=== PATIENT | male | born 1930 | race Caucasian/White ===

== ENCOUNTER 2017-01-26 10:57 | Emergency (ER) | payer BC ==
[~2017-01-26] VITALS: Ht 182.9 cm; Wt 107.2 kg
[~2017-01-26 10:57] MED LIST: AMOX500C3 PO; ASPI81TA21 PO; BUME1TAB PO; CARV25TA2 PO; FAMO20TA11 PO; GLIM2TAB2 PO; LISI5TAB PO; LPT/40 PO; METF500T PO; MULTTAB58 PO; SITA100T3 PO; WARF5TAB7 PO; WARF5TAB90 PO
[2017-01-26 11:08] VITALS: TEMP 37.7; O2SAT 97; Ht 182.9 cm; Wt 107.2 kg
[2017-01-26] MEDS ORDERED: WARF5TAB90 PO (11:54)
[2017-01-26] MEDS ORDERED: LISI2.5T5 PO (11:54)
[2017-01-26] MEDS ORDERED: RANO1000 PO (11:54)
[2017-01-26 12:10] LABS: HEMATOCRIT 33.8 % (42-52); MEAN CELL VOLUME 90.6 fL (80-100); MEAN CORPUSCULAR HGB CONC 33.1 g/dl (32-36); MEAN PLATELET VOLUME 10.2 fL (7.4-10.4); PLATELET COUNT 127 K/uL (130-400); RED BLOOD COUNT 3.73 M/uL (4.7-6.1); WHITE BLOOD COUNT 8.19 K/uL (4.8-10.8)
[2017-01-26 12:24] LABS: INR 1.7 (0.9-1.1); PROTHROMBIN TIME (PATIENT) 19.1 SECONDS (9.0-12.0)
[2017-01-26 12:28] LABS: ALT/SGPT 26 U/L (12-78); BLOOD UREA NITROGEN 27 mg/dl (7-18); BUN/CREATININE RATIO 15.1 (10-20); CALCIUM 8.7 mg/dl (8.5-10.1); CARBON DIOXIDE 27 mmol/L (21-32); CHLORIDE 103 mmol/L (98-107); GLUCOSE 139 mg/dl (70-99); MAGNESIUM 2.3 mg/dl (1.8-2.4); POTASSIUM 4.6 mmol/L (3.5-5.1); SODIUM 136 mmol/L (136-145)
[2017-01-26 12:38] LABS: ALB/GLOB RATIO 0.8 (0.9-2); ALKALINE PHOSPHATASE 109 U/L (45-117); AST/SGOT 25 U/L (15-37)
--- NOTE | 2017-01-26 12:44 | DIAGNOSTIC IMAGING REPORT ---
CT OF THE HEAD WITHOUT CONTRAST CLINICAL HISTORY: Change in mental status. COMPARISON STUDY: No previous studies for comparison. CT DOSE: 2155.14 mGy.cm TECHNIQUE: Helical axial images of the head were obtained without IV contrast. Automated exposure control was utilized for the study. FINDINGS: There is a moderate amount of acute intraventricular hemorrhage, predominantly located within the right lateral ventricle. There is a small amount of hemorrhage within the occipital horn as well as the temporal horn of the left lateral ventricle. There is mild dilatation of the lateral ventricles. There is a small amount of hemorrhage within the third ventricle. The basilar cisterns are patent. There are no extra axial collections. There are no findings to suggest acute dural sinus thrombosis or acute territorial infarct. There are no significant calvarial abnormalities. There is mild mucosal thickening of the sinuses. IMPRESSION: Moderate acute intraventricular hemorrhage including a 3.9 cm midline lateral ventricular clot, as described above. The etiology for this hemorrhage is not clear on this exam and an underlying mass cannot be excluded. Mild ventricular dilatation which could be due to atrophy or related to the hemorrhage. A short-term follow-up head CT in 12 hours is recommended. Discussed with Dr. Chavez at time of dictation. Electronically signed by: Anshul Redding M.D. 01/26/2017 12:42 PM Dictated Date/Time: 01/26/2017 12:36 PM
--- NOTE | 2017-01-26 12:46 | DIAGNOSTIC IMAGING REPORT ---
CT OF THE CERVICAL SPINE WITHOUT CONTRAST CLINICAL HISTORY: Neck pain. COMPARISON STUDY: No previous studies for comparison. TECHNIQUE: Helical axial images of the cervical spine were obtained without IV contrast. Sagittal and coronal reconstructions were viewed. FINDINGS: Alignment of the cervical spine is anatomic. Craniocervical junction is intact. There is no acute cervical spine fracture. [id number]-[id number] multilevel degenerative disc disease and facet arthrosis is present. There is no prevertebral edema. IMPRESSION: No acute cervical spine fracture or subluxation. Electronically signed by: Anshul Redding M.D. 01/26/2017 12:45 PM Dictated Date/Time: 01/26/2017 12:43 PM
[2017-01-26 12:49] LABS: BASO % 0.1 %; BASO ABS # 0.01 K/uL (0-0.2); COMPLETE YES; EOS % 1.5 %; IG% 0.2 %; LYMPH ABS # 1.31 K/uL (1.2-3.4); MONO % 6.3 %; NEUT % 75.9 %
[2017-01-26] MEDS ORDERED: PROTHROMBIN COMP CONC- KCENTRA 2,000 UNIT in SYRINGE 0 ML IV STA (13:30)
[2017-01-26] MEDS ORDERED: PHYTONADIONE INJ 10 MG in SODIUM CHLORIDE 0.9% 50ML 50 ML IV ONE (13:45)
[2017-01-26] MEDS ORDERED: PROTHROMBIN COMP CONC- KCENTRA 2,000 UNIT in SYRINGE 0 ML IV SCH (14:00)
--- NOTE | 2017-01-26 14:46 | DIAGNOSTIC IMAGING REPORT ---
CHEST ONE VIEW PORTABLE CLINICAL HISTORY: Altered mental status. COMPARISON STUDY: Chest radiograph June 25, 2013. FINDINGS: There is no pneumothorax or pleural effusion. Moderate elevation of the right hemidiaphragm is increased since exam of June 25, 2013. There is an aortic valve prosthesis. There is a left subclavian biventricular pacer/AICD. Median sternotomy wires are noted. There is moderate cardiomegaly without evidence of pulmonary edema. No lobar consolidation is present. IMPRESSION: 1. No acute cardiopulmonary findings. 2. Increase in moderate elevation pf the right hemidiaphragm since exam of June 25, 2013. 3. Moderate cardiomegaly without evidence of pulmonary edema. Electronically signed by: Anshul Redding M.D. 01/26/2017 2:45 PM Dictated Date/Time: 01/26/2017 2:44 PM
[2017-01-26 15:15] VITALS: BP 142/78; PULSE 90; O2SAT 95
--- NOTE | 2017-02-05 14:44 | EMERGENCY ROOM VISIT NOTE ---
History Report prepared by Cesaribmiroslava: Ronny Martinez Under the Supervision of: Dr. Sadia Chavez D.O. First contact with patient: 11:15 Chief Complaint: CONFUSION Stated Complaint: CONFUSION/HEADACHE/SHOULDER PAIN Nursing Triage Summary: Patient presents via EMS. reports that patient was confused this AM, thinkinng that he was in [place]. On arrival to ED patient appears moderately oriented, slow to answer some questions. Patient also presents with low grade fever. Patient does c/c of mild one day headache, frontal area. Patient denies any cough, chest pain, urinary symtpoms, vomiting. History of Present Illness The patient is a 86 year old male who presents to the Emergency Room with complaints of constant confusion starting yesterday. The patient is accompanied by his who states that he has been confused and is not oriented to time. She reports that the patient believed he was in [place] this morning but states that he was in [place] months ago. She states that he has not had any change in medications and typically has edema in his legs. His also reports that he ran into a tree branch the other day causing a laceration to his right cheek. The patient states that he has been experiencing constipation, which resolved, and dysuria. He admits that he has neck stiffness that occurs occasionally. The patient states that he has a history of chest surgery and a pacemaker. The patient denies chest pains, dyspnea, arm pain, leg pain, cough, dizziness, and lightheadedness. Source of History: patient, spouse/significant other () Onset: yesterday Position: other (global) Quality: other (confusion) Timing: constant Associated Symptoms: + urinary symptoms, No cough, No chest pain, No SOB Review of Systems See HPI for pertinent positives & negatives. A total of 10 systems reviewed and were otherwise negative. Past Medical & Surgical Medical Problems: (1) Angina (2) Aortic valve stenosis (3) AORTOCORONARY BYPASS (4) Chronic ischemic heart disease (5) DIAB ALEIDA WO COMPL, TYPE II OR UNSPEC TYPE, NOT UNCNTRLD (6) Epistaxis (7) GI bleed (8) Hyperlipidemia (9) HYPERLIPIDEMIA NEC/NOS (10) Influenza (11) Ischemic cardiomyopathy (12) Percutaneous transluminal coronary angioplasty (13) Placement of stent in coronary artery (14) SHORTNESS OF BREATH Family History Omitted due to patient age Social History Smoking Status: Never Smoker Alcohol Use: other Marital Status: Housing Status: lives with family Current/Historical Medications Scheduled Aspirin Enteric Coated (Ecotrin Or Generic), 81 MG PO DAILY Atorvastatin (Lipitor), 40 MG PO DAILY Bumetanide (Bumex), 1 MG PO DAILY Carvedilol (Coreg), 25 MG PO BID Famotidine (Pepcid), 20 MG PO DAILY Glimepiride (Glimepiride), 2 MG PO DAILY Insulin Aspart (Novolog Flexpen), 1 DOSE SQ QID Lisinopril (Lisinopril), 5 MG PO DAILY Metformin Hcl (Glucophage), 500 MG PO QAM Multiple Vitamin (Multivitamin), 1 TABLET PO DAILY Polyethylene Glycol 3350 (Miralax), 17 GM PO DAILY Ranolazine (Ranexa), 1,000 MG PO BID Senna/Docusate Sod (Senokot S), 1 TAB PO Q24H Sitagliptin Phosphate (Januvia), 100 MG PO DAILY Sulfa/Trimethoprim (Bactrim Ds 800MG/160MG), 1 TAB PO BID Tamsulosin HCl (Tamsulosin HCl), 0.4 MG PO QPM Warfarin Sodium (Coumadin), 5 MG PO 2XWK Warfarin Sodium (Coumadin), 2.5 MG PO 5XWK Scheduled PRN Acetaminophen (Tylenol), 500 MG PO Q4 PRN for Pain Bisacodyl (Cvs Bisacodyl), 10 MG RE Q24H PRN for Constipation Docusate Sodium (Diocto), 10 ML PO BID PRN for Constipation Magnesium Hydroxide (Milk of Magnesia), 30 ML PO Q24H PRN for Constipation Sodium Phosphate/Biphosphate (Fleet Enema), 1 EA LA DAILY PRN for Constipation Allergies Coded Allergies: No Known Allergies (Unverified , 02/04/17) Physical Exam Vital Signs Date Time Temp Pulse Resp B/P (MAP) Pulse Ox O2 Delivery O2 Flow Rate FiO2 01/26/17 15:15 90 14 142/78 95 01/26/17 15:05 92 25 94 01/26/17 15:00 150/80 01/26/17 14:50 92 23 94 01/26/17 14:45 149/85 01/26/17 14:37 97 22 93 01/26/17 14:30 135/80 01/26/17 14:22 91 22 97 01/26/17 14:17 148/71 01/26/17 14:15 135/102 01/26/17 14:15 88 144/84 01/26/17 14:05 92 22 95 01/26/17 14:02 130/74 01/26/17 13:50 93 21 94 01/26/17 13:46 131/75 01/26/17 13:35 98 23 94 01/26/17 13:30 140/80 01/26/17 13:29 150/80 01/26/17 13:20 93 22 95 01/26/17 13:09 91 01/26/17 13:05 93 12 98 01/26/17 12:50 92 17 99 01/26/17 12:45 129/80 01/26/17 11:57 90 23 96 01/26/17 11:27 90 21 92 01/26/17 11:16 88 01/26/17 11:08 97 Room Air 01/26/17 11:08 37.7 90 20 149/65 96 Room Air 01/26/17 11:03 149/65 Physical Exam GENERAL: alert, well appearing, well nourished, no distress, non-toxic EYE EXAM: normal conjunctiva, PERRL and EOM's grossly intact OROPHARYNX: no exudate, no erythema, lips, buccal mucosa, and tongue normal and mucous membranes are moist HEAD: small superficial laceration to the right inferior orbital region. No other contusions or ecchymosis. NECK: supple, no nuchal rigidity, no adenopathy, non-tender LUNGS: Clear to auscultation. Normal chest wall mechanics HEART: no murmurs, S1 normal and S2 normal CHEST: Midline scar over sternum consistent with sternotomy. Pacemaker on anterior left chest wall. ABDOMEN: abdomen soft, non-tender, normo-active bowel sounds, no masses, no rebound or guarding. BACK: Back is symmetrical on inspection and there is no deformity, no midline tenderness, no CVA tenderness. SKIN: no rashes and no bruising UPPER EXTREMITIES: upper extremities are grossly normal. LOWER EXTREMITIES: 3+ edema bilaterally. NEURO EXAM: Normal sensorium, cranial nerves II-XII grossly intact, normal speech, no gross weakness of arms, no gross weakness of legs. No drift. Finger to nose intact. Gross sensation intact. Medical Decision & Procedures ER Provider Diagnostic Interpretation: Radiology results have been interpreted by the radiologist and reviewed by me. CT OF THE HEAD WITHOUT CONTRAST CLINICAL HISTORY: Change in mental status. COMPARISON STUDY: No previous studies for comparison. CT DOSE: 2155.14 mGy.cm TECHNIQUE: Helical axial images of the head were obtained without IV contrast. Automated exposure control was utilized for the study. FINDINGS: There is a moderate amount of acute intraventricular hemorrhage, predominantly located within the right lateral ventricle. There is a small amount of hemorrhage within the occipital horn as well as the temporal horn of the left lateral ventricle. There is mild dilatation of the lateral ventricles. There is a small amount of hemorrhage within the third ventricle. The basilar cisterns are patent. There are no extra axial collections. There are no findings to suggest acute dural sinus thrombosis or acute territorial infarct. There are no significant calvarial abnormalities. There is mild mucosal thickening of the sinuses. IMPRESSION: Moderate acute intraventricular hemorrhage including a 3.9 cm midline lateral ventricular clot, as described above. The etiology for this hemorrhage is not clear on this exam and an underlying mass cannot be excluded. Mild ventricular dilatation which could be due to atrophy or related to the hemorrhage. A short-term follow-up head CT in 12 hours is recommended. Discussed with Dr. Chavez at time of dictation. Electronically signed by: Anshul Redding M.D. 01/26/2017 12:42 PM Dictated Date/Time: 01/26/2017 12:[address] OF THE CERVICAL SPINE WITHOUT CONTRAST CLINICAL HISTORY: Neck pain. COMPARISON STUDY: No previous studies for comparison. TECHNIQUE: Helical axial images of the cervical spine were obtained without IV contrast. Sagittal and coronal reconstructions were viewed. FINDINGS: Alignment of the cervical spine is anatomic. Craniocervical junction is intact. There is no acute cervical spine fracture. [id number]-we-mjublmjm multilevel degenerative disc disease and facet arthrosis is present. There is no prevertebral edema. IMPRESSION: No acute cervical spine fracture or subluxation. Electronically signed by: Anshul Redding M.D. 01/26/2017 12:45 PM Dictated Date/Time: 01/26/2017 12:43 PM Laboratory Results 01/26/17 11:50 Red Blood Count 3.73, Mean Corpuscular Volume 90.6, Mean Corpuscular Hemoglobin 30.0, Mean Corpuscular Hemoglobin Concent 33.1, Mean Platelet Volume 10.2, Neutrophils (%) (Auto) 75.9, Lymphocytes (%) (Auto) 16.0, Monocytes (%) (Auto) 6.3, Eosinophils (%) (Auto) 1.5, Basophils (%) (Auto) 0.1, Neutrophils # (Auto) 6.21, Lymphocytes # (Auto) 1.31, Monocytes # (Auto) 0.52, Eosinophils # (Auto) 0.12, Basophils # (Auto) 0.01 01/26/17 11:50 Test 01/26/17 11:50 White Blood Count 8.19 K/uL (4.8-10.8) Red Blood Count 3.73 M/uL (4.7-6.1) Hemoglobin 11.2 g/dL (14.0-18.0) Hematocrit 33.8 % (42-52) Mean Corpuscular Volume 90.6 fL (80-100) Mean Corpuscular Hemoglobin 30.0 pg (25-34) Mean Corpuscular Hemoglobin Concent 33.1 g/dl (32-36) Platelet Count 127 K/uL (130-400) Mean Platelet Volume 10.2 fL (7.4-10.4) Neutrophils (%) (Auto) 75.9 % Lymphocytes (%) (Auto) 16.0 % Monocytes (%) (Auto) 6.3 % Eosinophils (%) (Auto) 1.5 % Basophils (%) (Auto) 0.1 % Neutrophils # (Auto) 6.21 K/uL (1.4-6.5) Lymphocytes # (Auto) 1.31 K/uL (1.2-3.4) Monocytes # (Auto) 0.52 K/uL (0.11-0.59) Eosinophils # (Auto) 0.12 K/uL (0-0.5) Basophils # (Auto) 0.01 K/uL (0-0.2) RDW Standard Deviation 50.3 fL (36.4-46.3) RDW Coefficient of Variation 15.1 % (11.5-14.5) Immature Granulocyte % (Auto) 0.2 % Immature Granulocyte # (Auto) 0.02 K/uL (0.00-0.02) Prothrombin Time 19.1 SECONDS (9.0-12.0) Prothromb Time International Ratio 1.7 (0.9-1.1) Anion Gap 6.0 mmol/L (3-11) Est Creatinine Clear Calc Drug Dose 35.9 ml/min Estimated GFR () 38.1 Estimated GFR (Non- 32.9 BUN/Creatinine Ratio 15.1 (10-20) Calcium Level 8.7 mg/dl (8.5-10.1) Magnesium Level 2.3 mg/dl (1.8-2.4) Total Bilirubin 1.4 mg/dl (0.2-1) Aspartate Amino Transf (AST/SGOT) 25 U/L (15-37) Alanine Aminotransferase (ALT/SGPT) 26 U/L (12-78) Alkaline Phosphatase 109 U/L (45-117) Troponin I < 0.015 ng/ml (0-0.045) Total Protein 7.7 gm/dl (6.4-8.2) Albumin 3.5 gm/dl (3.4-5.0) Globulin 4.2 gm/dl (2.5-4.0) Albumin/Globulin Ratio 0.8 (0.9-2) Thyroid Stimulating Hormone (TSH) 1.310 uIu/ml (0.300-4.500) Laboratory results per my review. Medications Administered Medications (Trade) Dose Ordered Sig/Sary Route Start Time Stop Time Status Last Admin Dose Admin Phytonadione 10 mg/Sodium Chloride 51 ml @ 102 mls/hr ONE ONCE IV 01/26/17 13:45 01/26/17 14:14 DC 01/26/17 13:51 102 MLS/HR Prothrombin Complex Concent (Human) 2000 unit/ Syringe 80 ml @ 10 mls/min 1400 IV 01/26/17 14:00 01/26/17 16:21 DC 01/26/17 14:11 10 MLS/MIN ECG Indication: altered mental status Rate (beats per minute): 88 Rhythm: other (paced) Findings: no acute ischemic change, other (prolonged QRS along with pacemaker) ED Course 1122: The patient was evaluated in room C10. A complete history and physical exam was performed. 1300: I reevaluated the patient and he is resting comfortably. I updated him on the results. 1309: I discussed the patient's case with Dr. Dimas Lopez, Neurology [facility]. He recommends that I give the patient PCC here if unavailable to give 5 mg of Vitamin K. He understands the patient's condition and agrees to accept the patient. The patient will be further evaluated. 1330: I discussed the patient's case with Dr. Pratt, [facility] Pathology. We spoke about the patient's dosage of PCC and the institutional protocol. 1345: Phytonadione 10 mg/ Sodium Chloride 51 ml @ 102 mls/hr Protocol IV. 1400: Prothrombin Complex Concent 2000 unit/Syringe 80 ml @ 10 mls/min IV. Medical Decision The differential diagnosis includes but is not limited to: etiologies such as metabolic, infection, hypoglycemia, electrolyte abnormalities, cardiac sources, intracerebral event, toxicologic, neurologic, as well as others were entertained. Medication Reconciliation: I attest that I have personally reviewed the patient' s current medication list. Blood pressure screening: Patient was found to have an elevated blood pressure and was referred to their primary doctor for recheck and further treatment. Discussed the patient and family at bedside possible possible differential diagnoses during my initial evaluation. Patient found to have acute intraventricular hemorrhage requiring transfer and additional medications. Patient and family aware of all findings and results were agreeable with transfer. Vital signs otherwise stable. Consults Time Called: 1300 Consulting Physician: Dr. Dimas Lopez, Neurology [facility] Returned Call: 1300 I discussed the patient's case with Dr. Dimas Lopez, Neurology [facility]. He recommends that I give the patient PCC here if unavailable to give 5 mg of Vitamin K. He understands the patient's condition and agrees to accept the patient. The patient will be further evaluated. Additional Consults: Time Called: 1330 Consulted Physician: Dr. Pratt, [facility] Pathology Returned Call: 1330 Additional Comments: I discussed the patient's case with Dr. Pratt, [facility] Pathology. We spoke about the patient's dosage of PCC and the institutional protocol. Impression Primary Impression: Confusion Additional Impressions: Intraventricular hemorrhage Chronic kidney disease (CKD) Subtherapeutic anticoagulation H/O aortic valve replacement Critical Care I have personally spent 60 minutes of critical care time in the direct management of this patient. This includes bedside care, interpretation of diagnostic studies, and testing, discussion with consultants, patient, and family members, and other required patient management activities. This 60 minutes is in excess of all separately billable procedures. Scribe Attestation The scribe's documentation has been prepared under my direction and personally reviewed by me in its entirety. I confirm that the note above accurately reflects all work, treatment, procedures, and medical decision making performed by me. Departure Information Dispostion Transfer Acute Care Facility (Dr. Dimas Lopez, Neurology [facility]) Referrals Josiah Gustafson III, M.D. (PCP) Patient Instructions My [facility] Problem Qualifiers Additional Impressions: Chronic kidney disease (CKD) Chronic kidney disease stage: unspecified stage Qualified Codes: N18.9 - Chronic kidney disease, unspecified
[2017-02-08] MEDS ORDERED: ANSS PR (12:22)
== END 2017-01-26 15:30 | disposition short-term general hospital (02) ==
LOC: EDBD 10:57 → C.EDC 10:59
DX: I61.5 Nontraumatic intracerebral hemorrhage, intraventricular (principal); Z95.2 Presence of prosthetic heart valve; R79.1 Abnormal coagulation profile; N18.9 Chronic kidney disease, unspecified; E11.9 Type 2 diabetes mellitus without complications; E78.5 Hyperlipidemia, unspecified; I35.0 Nonrheumatic aortic (valve) stenosis; I25.5 Ischemic cardiomyopathy; Z95.1 Presence of aortocoronary bypass graft; Z95.5 Presence of coronary angioplasty implant and graft; Z79.01 Long term (current) use of anticoagulants; Z79.82 Long term (current) use of aspirin; Z79.899 Other long term (current) drug therapy; Z79.4 Long term (current) use of insulin

== ENCOUNTER 2017-02-04 17:08 | Observation (INO) | payer OTHER, BC ==
[~2017-02-04] VITALS: Ht 185.4 cm; Wt 102.6 kg
[~2017-02-04 17:08] MED LIST changes: -AMOX500C3 PO; +LISI2.5T5 PO; -LISI5TAB PO; +RANO1000 PO; -WARF5TAB7 PO
[2017-02-04] MEDS ORDERED: FLM4 PO (17:55)
[2017-02-04] MEDS ORDERED: NVLGI/PEN SQ (17:59)
[2017-02-04] MEDS ORDERED: SULF800T23 PO (18:00)
[2017-02-04] MEDS ORDERED: SODIUM CHLORIDE 0.9% 1000ML 1,000 ML IV STA (18:10)
[2017-02-04 18:27] LABS: HEMATOCRIT 30.2 % (42-52); MEAN CELL VOLUME 88.6 fL (80-100); MEAN CORPUSCULAR HEMOGLOBIN 29.6 pg (25-34); MEAN CORPUSCULAR HGB CONC 33.4 g/dl (32-36); MEAN PLATELET VOLUME 10.7 fL (7.4-10.4); PLATELET COUNT 127 K/uL (130-400); RED BLOOD COUNT 3.41 M/uL (4.7-6.1); WHITE BLOOD COUNT 6.38 K/uL (4.8-10.8)
[2017-02-04] MEDS ORDERED: POLY335019 PO (18:31)
[2017-02-04] MEDS ORDERED: MOMLX PO (18:31)
[2017-02-04] MEDS ORDERED: SENN-65 PO (18:31)
[2017-02-04] MEDS ORDERED: ACET-1256 PO (18:31)
[2017-02-04] MEDS ORDERED: BISA10SU54 RE (18:31)
[2017-02-04] MEDS ORDERED: CLCUDL PO (18:31)
[2017-02-04] MEDS ORDERED: SODIENE PR (18:31)
[2017-02-04 18:35] LABS: BUN/CREATININE RATIO 20.2 (10-20); CALCIUM 8.1 mg/dl (8.5-10.1); CREATININE 1.2 mg/dl (0.60-1.40); POTASSIUM 3.5 mmol/L (3.5-5.1)
[2017-02-04 18:38] LABS: INR 1.1 (0.9-1.1); PARTIAL THROMBOPLASTIN RATIO 1.1
[2017-02-04 18:48] LABS: BASO % 0.3 %; BASO ABS # 0.02 K/uL (0-0.2); COMPLETE YES; EOS % 3.9 %; IG% 0.2 %; LYMPH % 20.5 %; LYMPH ABS # 1.31 K/uL (1.2-3.4); MONO % 8.9 %; NEUT % 66.2 %
[2017-02-04 19:22] LABS: URINE APPEARANCE CLEAR (CLEAR); URINE BILIRUBIN NEG (NEG); URINE COLOR DK YELLOW; URINE NITRITE NEG (NEG); URINE PH 5.5 (4.5-7.5); URINE SPECIFIC GRAVITY 1.021 (1.000-1.030); UROBILINOGEN NEG (NEG)
[2017-02-04 19:23] LABS: MANUAL MICROSCOPIC REQUIRED? NO; REVIEW REQ? NO
--- NOTE | 2017-02-04 19:41 | DIAGNOSTIC IMAGING REPORT ---
CHEST ONE VIEW PORTABLE CLINICAL HISTORY: Abdominal pain. GI bleed. COMPARISON STUDY: 01/26/2017 FINDINGS: The heart is enlarged. There is a left subclavian pacer/defibrillator present. There is no failure. There is no focal pulmonary consolidation. There are no pleural effusions. There is stable mild elevation right hemidiaphragm. There is no free intraperitoneal air. There is aortic valve prosthesis.[ IMPRESSION: No active disease in the chest. Electronically signed by: Christopher Back M.D. 02/04/2017 7:39 PM Dictated Date/Time: 02/04/2017 7:39 PM
--- NOTE | 2017-02-04 19:42 | DIAGNOSTIC IMAGING REPORT ---
KUB CLINICAL HISTORY: Abdominal pain. GI bleed. COMPARISON STUDY: No previous studies for comparison. FINDINGS: There is no pathologic bowel dilatation. There are multiple pelvic basin calcifications. These likely represent phleboliths. There is no conventional radiographic evidence of organomegaly. IMPRESSION: No evidence of pathologic bowel dilatation. Electronically signed by: Christopher Back M.D. 02/04/2017 7:40 PM Dictated Date/Time: 02/04/2017 7:40 PM
[2017-02-04] MEDS ORDERED: ONDANSETRON INJ 2 MG/ML 2 ML VIAL IV PRN (21:30)
[2017-02-04] MEDS ORDERED: MAGNESIUM HYDROXIDE SUSP 30 ML UDC PO PRN (21:30)
[2017-02-04] MEDS ORDERED: DOCUSATE SODIUM 100 MG/10 ML UDC PO PRN (21:30)
[2017-02-04] MEDS ORDERED: ACETAMINOPHEN 325 MG TAB PO PRN (21:30)
[2017-02-04] MEDS ORDERED: ALUMINUM/MAGNESIUM/SIMETH (MAALOX MAX) 30 ML UDC PO PRN (21:30)
[2017-02-04] MEDS ORDERED: BISACODYL 10 MG SUPP PR PRN (21:30)
[2017-02-04] MEDS ORDERED: POLYETHYLENE (MIRALAX) 17 GM PACK PO PRN (21:30)
[2017-02-04 22:45] VITALS: BP 158/96; PULSE 80; TEMP 37.3; O2SAT 98; Ht 185.4 cm; Wt 102.6 kg
[2017-02-05] VITALS (7 sets, daily range): BP systolic 129–162; BP diastolic 64–88; PULSE 77–85; TEMP 36.6–37.4; O2SAT 96–100
[2017-02-05] MEDS: RANITIDINE IV 50 MG in DEXTROSE 5% 100ML 100 ML IV SCH ×2 (00:07→06:29)
[2017-02-05] MEDS: SODIUM CHLORIDE 0.9% 1000ML 1,000 ML IV SCH (00:07)
--- NOTE | 2017-02-05 00:28 | EMERGENCY ROOM VISIT NOTE ---
ED Visit Note First contact with patient: 17:33 Chief Complaint: Rectal bleeding. History of Present Illness: Mr. Aparicio is an 86-year-old white male who is brought into the ED via ambulance for rectal bleeding. Currently he is at [facility] following a CVA. Today he was found to have rectal bleeding and was transferred to the ED. The rectal bleeding was described as melanotic but no amounts were given. On patient's arrival he does not know why he is being transferred to the hospital. He does not remember any rectal bleeding or being told he has rectal bleeding. On my evaluation he has no complaints and denies headache, dizziness , lightheadedness, chest pain, shortness of breath, abdominal pain, decreased appetite, nausea, vomiting, easy bruising, easy bleeding, hematuria. Review of Systems: As noted above in history of present illness. All body systems were reviewed and found to be negative as noted above. Past Medical History: CVA, urinary retention, primary hypertension, type 2 diabetes, dyslipidemia, supra-vascular aortic stenosis, ischemic cardiac myopathy, unspecified dementia, pacemaker implantation, CABG, angioplasty. Current Medications: Allergies to Medications: Patient denies. Social History: Patient is not currently employed, he is staying at a rehabilitation hospital; he denies tobacco and alcohol use. Physical Examination: Vital Signs: Date Time Temp Pulse Resp B/P (MAP) Pulse Ox O2 Delivery O2 Flow Rate FiO2 02/04/17 21:30 82 24 02/04/17 21:23 77 02/04/17 21:01 136/76 02/04/17 21:00 76 13 02/04/17 20:30 82 14 02/04/17 20:01 129/86 02/04/17 20:00 83 20 02/04/17 19:30 80 15 02/04/17 19:00 72 20 149/84 02/04/17 18:28 77 18 02/04/17 18:23 76 15 02/04/17 18:18 76 21 02/04/17 18:13 77 19 02/04/17 18:08 84 16 02/04/17 18:03 83 20 02/04/17 18:01 145/80 02/04/17 17:58 81 20 02/04/17 17:53 75 18 02/04/17 17:48 77 19 02/04/17 17:43 87 18 02/04/17 17:38 80 21 02/04/17 17:33 82 21 02/04/17 17:28 75 21 02/04/17 17:24 71 02/04/17 17:23 87 14 98 02/04/17 17:22 37.4 82 20 117/78 99 Room Air 02/04/17 17:19 117/78 GENERAL: 86-year-old male in no acute distress, chronically ill-appearing afebrile and hemodynamically stable. NEUROLOGICAL: Awake, alert and oriented to person, place, but not time. Answering questions appropriately and following commands. Good hand eye coordination. Cranial nerves II through XII grossly intact. SKIN: Warm, dry and pink. I do note bruising on the right humerus and over the right lateral thigh. HEENT: Atraumatic and normocephalic. PERRL. Sclera white and conjunctiva pink. No drainage from naris. Oral cavity moist and pink. Pharynx is nonerythematous or edematous. Speech normal. No lymphadenopathy. Trachea midline. No jugular venous distention. BACK: No tenderness over the bony spine. No CVA tenderness. THORAX: Lungs sounds are clear to auscultation and equal bilaterally with symmetrical chest wall. No wheezing, rales or rhonchi. No crepitus, tenderness , subcutaneous air or deformities noted. HEART: Regular rate and rhythm. No gallops, rubs or murmurs are appreciated. ABDOMEN: Flat, soft and nontender. Positive bowel sounds in all quadrants. No guarding, rigidity or organomegaly. RECTAL: No external tags or hemorrhoids. Normal rectal tone. There was a small amount of blood around the rectum that was dark red but not melanotic. Sample was obtained during examination and once again was dark red but not melanotic and did test heme positive. EXTREMITIES: Moves all extremities well on command and with purpose. ED Course: Patient is assessed as noted above. Patient's medication list was reviewed. Laboratory Testing: Test 02/04/17 00:00 02/04/17 17:30 02/04/17 17:41 Range/Units Urine Color DK YELLOW Urine Appearance CLEAR CLEAR Urine pH 5.5 4.5-7.5 Urine Specific [place] 1.021 1.000-1.030 Urine Protein NEG NEG Urine Glucose (UA) NEG NEG Urine Ketones NEG NEG Urine Occult Blood TRACE NEG Urine Nitrite NEG NEG Urine Bilirubin NEG NEG Urine Urobilinogen NEG NEG Urine Leukocyte Esterase NEG NEG Urine WBC (Auto) 1-5 0-5 /hpf Urine RBC (Auto) 10-30 0-4 /hpf Urine Hyaline Casts (Auto) 1-5 0-5 /lpf Urine Epithelial Cells (Auto) 5-10 0-5 /lpf Urine Bacteria (Auto) NEG NEG White Blood Count 6.38 4.8-10.8 K/uL Red Blood Count 3.41 4.7-6.1 M/uL Hemoglobin 10.1 14.0-18.0 g/dL Hematocrit 30.2 42-52 % Mean Corpuscular Volume 88.6 80-100 fL Mean Corpuscular Hemoglobin 29.6 25-34 pg Mean Corpuscular Hemoglobin Concent 33.4 32-36 g/dl Platelet Count 127 130-400 K/uL Mean Platelet Volume 10.7 7.4-10.4 fL Neutrophils (%) (Auto) 66.2 % Lymphocytes (%) (Auto) 20.5 % Monocytes (%) (Auto) 8.9 % Eosinophils (%) (Auto) 3.9 % Basophils (%) (Auto) 0.3 % Neutrophils # (Auto) 4.22 1.4-6.5 K/uL Lymphocytes # (Auto) 1.31 1.2-3.4 K/uL Monocytes # (Auto) 0.57 0.11-0.59 K/uL Eosinophils # (Auto) 0.25 0-0.5 K/uL Basophils # (Auto) 0.02 0-0.2 K/uL RDW Standard Deviation 47.8 36.4-46.3 fL RDW Coefficient of Variation 14.7 11.5-14.5 % Immature Granulocyte % (Auto) 0.2 % Immature Granulocyte # (Auto) 0.01 0.00-0.02 K/uL Prothrombin Time 12.0 9.0-12.0 SECONDS Prothromb Time International Ratio 1.1 0.9-1.1 Activated Partial Thromboplast Time 28.1 21.0-31.0 SECONDS Partial Thromboplastin Ratio 1.1 Sodium Level 139 136-145 mmol/L Potassium Level 3.5 3.5-5.1 mmol/L Chloride Level 104 98-107 mmol/L Carbon Dioxide Level 27 21-32 mmol/L Anion Gap 8.0 3-11 mmol/L Blood Urea Nitrogen 24 7-18 mg/dl Creatinine 1.20 0.60-1.40 mg/dl Est Creatinine Clear Calc Drug Dose 53.5 ml/min Estimated GFR () 62.2 Estimated GFR (Non- 53.7 BUN/Creatinine Ratio 20.2 10-20 Random Glucose 117 70-99 mg/dl Calcium Level 8.1 8.5-10.1 mg/dl Total Bilirubin 0.7 0.2-1 mg/dl Direct Bilirubin 0.2 0-0.2 mg/dl Aspartate Amino Transf (AST/SGOT) 44 15-37 U/L Alanine Aminotransferase (ALT/SGPT) 74 12-78 U/L Alkaline Phosphatase 93 45-117 U/L Total Protein 6.4 6.4-8.2 gm/dl Albumin 2.7 3.4-5.0 gm/dl Lipase 203 73-393 U/L Bedside Lactic Acid Venous 1.54 0.90-1.70 mmol/L Patient was hydrated with normal saline. Patient was reassessed multiple times during his stay in the emergency department. Patient's case was reviewed with Dr. Alfaro; we agreed on diagnostic approach, treatment, disposition and plan. Patient's case was reviewed with case management and Dr. Franz, hospitalist, for medical observation/admission. Patient and male friend were educated about today's findings. Clinical Impression: Gastrointestinal bleeding. Decision-Making: Initially my differential diagnosis I considered hemorrhoids, upper GI bleed, lower GI bleed, colitis, diverticulitis, gastritis and other causes. Disposition and Plan: Patient be brought in the hospital by the hospitalist; please see their notes and orders for final disposition and plan.
--- NOTE | 2017-02-05 05:19 | History and Physical ---
History & Physical Date & Time of Service: Feb 05, 2017 at 05:07 Chief Complaint: Gi Bleed Primary Care Physician: Josiah Gustafson III, M.D. History of Present Illness Source: patient, clinic records, hospital records This is an 86 year old male with a PMH of CAD s/p CABG x3, ischemic cardiomyopathy s/p AICD, aortic stenosis s/p TAVR, atrial flutter s/p cardioversion, DM2, HTN, HLD with recent stroke - sent over by [facility] due to dark, melanotic stools. Most of the history is obtained by the records at [facility]; he was sent over there for CVA; has been confused at [facility] ; they have note darker stools, so he was sent over. Upon presentation, stools were not noted to be very dark - Hgb > 10; no tachycardia/tachypnea. Past Medical/Surgical History Medical Problems: (1) Angina Status: Chronic (2) Aortic valve stenosis Status: Chronic (3) AORTOCORONARY BYPASS Status: Resolved (4) Chronic ischemic heart disease Status: Chronic (5) DIAB ALEIDA WO COMPL, TYPE II OR UNSPEC TYPE, NOT UNCNTRLD Status: Chronic (6) Epistaxis Status: Resolved (7) Hyperlipidemia Status: Chronic (8) HYPERLIPIDEMIA NEC/NOS Status: Chronic (9) Influenza Status: Resolved (10) Ischemic cardiomyopathy Status: Chronic (11) Percutaneous transluminal coronary angioplasty Status: Resolved (12) Placement of stent in coronary artery Status: Resolved (13) SHORTNESS OF BREATH Status: Chronic Family History Omitted due to patient age Social History Smoking Status: Former Smoker Marital Status: Housing status: lives with family Immunizations History of Influenza Vaccine: No History of Tetanus Vaccine?: Yes History of Pneumococcal: No History of Hepatitis B Vaccine: No Multi-Drug Resistant Organisms History of MDRO: No Allergies Coded Allergies: No Known Allergies (Unverified , 02/04/17) Home Medications Scheduled Aspirin Enteric Coated (Ecotrin Or Generic), 81 MG PO DAILY Atorvastatin (Lipitor), 40 MG PO DAILY Bumetanide (Bumex), 1 MG PO DAILY Carvedilol (Coreg), 25 MG PO BID Famotidine (Pepcid), 20 MG PO DAILY Glimepiride (Glimepiride), 2 MG PO DAILY Insulin Aspart (Novolog Flexpen), 1 DOSE SQ QID Lisinopril (Lisinopril), 5 MG PO DAILY Metformin Hcl (Glucophage), 500 MG PO QAM Multiple Vitamin (Multivitamin), 1 TABLET PO DAILY Polyethylene Glycol 3350 (Miralax), 17 GM PO DAILY Ranolazine (Ranexa), 1,000 MG PO BID Senna/Docusate Sod (Senokot S), 1 TAB PO Q24H Sitagliptin Phosphate (Januvia), 100 MG PO DAILY Sulfa/Trimethoprim (Bactrim Ds 800MG/160MG), 1 TAB PO BID Tamsulosin HCl (Tamsulosin HCl), 0.4 MG PO QPM Warfarin Sodium (Coumadin), 5 MG PO 2XWK Warfarin Sodium (Coumadin), 2.5 MG PO 5XWK Scheduled PRN Acetaminophen (Tylenol), 500 MG PO Q4 PRN for Pain Bisacodyl (Cvs Bisacodyl), 10 MG RE Q24H PRN for Constipation Docusate Sodium (Diocto), 10 ML PO BID PRN for Constipation Magnesium Hydroxide (Milk of Magnesia), 30 ML PO Q24H PRN for Constipation Sodium Phosphate/Biphosphate (Fleet Enema), 1 EA NE DAILY PRN for Constipation Review of Systems cannot obtain due to patient's mental status Physical Exam Vital Signs Date Time Temp Pulse Resp B/P (MAP) Pulse Ox O2 Delivery O2 Flow Rate FiO2 02/05/17 04:00 Room Air 02/05/17 04:00 36.7 77 18 162/88 (112) 98 Room Air 02/04/17 22:45 37.3 80 18 158/96 98 Room Air 02/04/17 22:00 80 17 130/86 02/04/17 21:30 82 24 02/04/17 21:23 77 02/04/17 21:01 136/76 02/04/17 21:00 76 13 02/04/17 20:30 82 14 02/04/17 20:01 129/86 02/04/17 20:00 83 20 02/04/17 19:30 80 15 02/04/17 19:00 72 20 149/84 02/04/17 18:28 77 18 02/04/17 18:23 76 15 02/04/17 18:18 76 21 7/10/17 18:13 77 19 02/04/17 18:08 84 16 02/04/17 18:03 83 20 02/04/17 18:01 145/80 02/04/17 17:58 81 20 02/04/17 17:53 75 18 02/04/17 17:48 77 19 02/04/17 17:43 87 18 02/04/17 17:38 80 21 02/04/17 17:33 82 21 02/04/17 17:28 75 21 02/04/17 17:24 71 02/04/17 17:23 87 14 98 02/04/17 17:22 37.4 82 20 117/78 99 Room Air 02/04/17 17:19 117/78 General Appearance: no apparent distress, + pertinent finding (disoriented, unsure of why he is here) Head: normocephalic, atraumatic Eyes: normal inspection ENT: hearing grossly normal Neck: supple Respiratory/Chest: lungs clear, normal breath sounds, no respiratory distress, no accessory muscle use Cardiovascular: regular rate, rhythm, no edema, no murmur Abdomen/GI: normal bowel sounds, non tender, soft Extremities/Musculoskelatal: normal capillary refill, no pedal edema Neurologic/Psych: no motor/sensory deficits, alert, + disoriented Skin: normal color Lymphatic: no adenopathy Diagnostics Laboratory Results Results Past 24 Hours Test 02/04/17 17:30 02/04/17 17:41 Range/Units White Blood Count 6.38 4.8-10.8 K/uL Red Blood Count 3.41 4.7-6.1 M/uL Hemoglobin 10.1 14.0-18.0 g/dL Hematocrit 30.2 42-52 % Mean Corpuscular Volume 88.6 80-100 fL Mean Corpuscular Hemoglobin 29.6 25-34 pg Mean Corpuscular Hemoglobin Concent 33.4 32-36 g/dl Platelet Count 127 130-400 K/uL Mean Platelet Volume 10.7 7.4-10.4 fL Neutrophils (%) (Auto) 66.2 % Lymphocytes (%) (Auto) 20.5 % Monocytes (%) (Auto) 8.9 % Eosinophils (%) (Auto) 3.9 % Basophils (%) (Auto) 0.3 % Neutrophils # (Auto) 4.22 1.4-6.5 K/uL Lymphocytes # (Auto) 1.31 1.2-3.4 K/uL Monocytes # (Auto) 0.57 0.11-0.59 K/uL Eosinophils # (Auto) 0.25 0-0.5 K/uL Basophils # (Auto) 0.02 0-0.2 K/uL RDW Standard Deviation 47.8 36.4-46.3 fL RDW Coefficient of Variation 14.7 11.5-14.5 % Immature Granulocyte % (Auto) 0.2 % Immature Granulocyte # (Auto) 0.01 0.00-0.02 K/uL Prothrombin Time 12.0 9.0-12.0 SECONDS Prothromb Time International Ratio 1.1 0.9-1.1 Activated Partial Thromboplast Time 28.1 21.0-31.0 SECONDS Partial Thromboplastin Ratio 1.1 Sodium Level 139 136-145 mmol/L Potassium Level 3.5 3.5-5.1 mmol/L Chloride Level 104 98-107 mmol/L Carbon Dioxide Level 27 21-32 mmol/L Anion Gap 8.0 3-11 mmol/L Blood Urea Nitrogen 24 7-18 mg/dl Creatinine 1.20 0.60-1.40 mg/dl Est Creatinine Clear Calc Drug Dose 53.5 ml/min Estimated GFR () 62.2 Estimated GFR (Non- 53.7 BUN/Creatinine Ratio 20.2 10-20 Random Glucose 117 70-99 mg/dl Calcium Level 8.1 8.5-10.1 mg/dl Total Bilirubin 0.7 0.2-1 mg/dl Direct Bilirubin 0.2 0-0.2 mg/dl Aspartate Amino Transf (AST/SGOT) 44 15-37 U/L Alanine Aminotransferase (ALT/SGPT) 74 12-78 U/L Alkaline Phosphatase 93 45-117 U/L Total Protein 6.4 6.4-8.2 gm/dl Albumin 2.7 3.4-5.0 gm/dl Lipase 203 73-393 U/L Bedside Lactic Acid Venous 1.54 0.90-1.70 mmol/L Diagnostic Radiology KUB CLINICAL HISTORY: Abdominal pain. GI bleed. COMPARISON STUDY: No previous studies for comparison. FINDINGS: There is no pathologic bowel dilatation. There are multiple pelvic basin calcifications. These likely represent phleboliths. There is no conventional radiographic evidence of organomegaly. IMPRESSION: No evidence of pathologic bowel dilatation. CHEST ONE VIEW PORTABLE CLINICAL HISTORY: Abdominal pain. GI bleed. COMPARISON STUDY: 01/26/2017 FINDINGS: The heart is enlarged. There is a left subclavian pacer/defibrillator present. There is no failure. There is no focal pulmonary consolidation. There are no pleural effusions. There is stable mild elevation right hemidiaphragm. There is no free intraperitoneal air. There is aortic valve prosthesis.[ IMPRESSION: No active disease in the chest. EKG Atrial-sensed ventricular-paced rhythm Abnormal ECG Impression Assessment and Plan This is an 86 year old male with a PMH of CAD s/p CABG x3, ischemic cardiomyopathy s/p AICD, aortic stenosis s/p TAVR, atrial flutter s/p cardioversion, DM2, HTN, HLD with recent stroke sent by [facility] due to melena Melena unsure of amount rectal exam done in the ER, no dark stools noted Hgb ~ 10; recheck in AM will do Zantac IV IVFs observe in tele GI consultation for possible scope if needed Recent CVA hold aspirin due to melena continue statin PT/OT/speech discharge planning back to [facility] on discharge CAD s/p CABG x3 hold aspirin continue statin continue DEJA-I Atrial Flutter s/p cardioversion no longer on Coumadin as per records will need to obtain records - HIM consulted Ischemic Cardiomyopathy s/p AICD hold diuretics gentle hydration stop IVFs when stable, and restart diuretics to prevent overload DVT ppx SCDs FULL CODE Advanced Directives Existing Living Will: No Existing Power of Sales Support Representative: No VTE Prophylaxis VTE Risk Assessment Done? Y/N: Yes Risk Level: High
[2017-02-05] MEDS: ATORVASTATIN 20 MG TAB PO SCH (07:13)
[2017-02-05] MEDS: LISINOPRIL 5 MG TAB PO SCH (07:13)
[2017-02-05] MEDS: CARVEDILOL 25 MG TAB PO SCH ×2 (07:13→20:14)
[2017-02-05] MEDS: DOCUSATE SODIUM/SENNA 50/8.6MG TAB PO SCH (07:13)
--- NOTE | 2017-02-05 12:21 | Gastrointestinal Consultation ---
Gastrointestinal Consultation Date of Consultation: Feb 05, 2017 Attending Physician: Odette Lantigua Consulting Physician: Carline Jiang Reason for Consultation: GI bleed History of Present Illness Patient is a 86 year old male seen for GI bleeding. I am unable to obtain history for pt today - he appears to be sleepy, able to open eyes when name called and follow simple commands but keep on saying "yes". Thus history is obtained from admission H&P, and who I called and spoke with over the phone. Early this month, pt was trimming tree, fell backwards and flat on his back, had a head injury, transferred to [facility]. He was diagnosed with at stroke (we do not have records). He was just transferred to [facility] a couple of weeks ago for rehab. He was taken to ED yesterday as [facility] staff report him having dark bloody stools. In the ED, rectal exam by provider showed dark but not melanotic stool, heme positive. H/H 10. Baseline Hgb 11. Coag studies, CMP unremarkable. KUB, CXR showed no acut pathology. Past Medical/Surgical History Medical Problems: (1) Skin tear of left lower leg without complication Status: Acute Past Medical History: Past Medical/Surgical History Medical Problems: (1) Angina Status: Chronic (2) Aortic valve stenosis Status: Chronic (3) AORTOCORONARY BYPASS Status: Resolved (4) Chronic ischemic heart disease Status: Chronic (5) DIAB ALEIDA WO COMPL, TYPE II OR UNSPEC TYPE, NOT UNCNTRLD Status: Chronic (6) Epistaxis Status: Resolved (7) Hyperlipidemia Status: Chronic (8) HYPERLIPIDEMIA NEC/NOS Status: Chronic (9) Influenza Status: Resolved (10) Ischemic cardiomyopathy Status: Chronic (11) Percutaneous transluminal coronary angioplasty Status: Resolved (12) Placement of stent in coronary artery Status: Resolved (13) SHORTNESS OF BREATH Status: Chronic Family History Omitted due to patient age Social History Smoking Status: Former Smoker Alcohol Use: none, other Drug Use: none Marital Status: Housing Status: lives with family, other (Was at [facility] for rehab following a stroke) Allergies Coded Allergies: No Known Allergies (Unverified , 02/04/17) Current Medications Home Meds and Scripts Medications Dose Route/Sig Max Daily Dose Days Date Category Dose Instructions Fleet Enema (Sodium Phosphate/Biphosphate) Veronica 1 Ea FL DAILY PRN 02/04/17 Reported Senokot S (Senna/Docusate Sodium) 1 Tab Tab 1 Tab PO Q24H 02/04/17 Reported Miralax (Polyethylene Glycol 3350) 1 Pow Pow 17 Gm PO DAILY 02/04/17 Reported Milk of Magnesia (Magnesium Hydroxide) 30 Ml Susp 30 Ml PO Q24H PRN 02/04/17 Reported Diocto (Docusate Sodium) 100 Mg/10 Ml Syrp 10 Ml PO BID PRN 02/04/17 Reported Cvs Bisacodyl (Bisacodyl) 10 Mg Sup 10 Mg RE Q24H PRN 02/04/17 Reported Tylenol (Acetaminophen) 500 Mg Tab 500 Mg PO Q4 PRN 02/04/17 Reported Bactrim Ds 800MG/160MG (Trimethoprim/Sulfamethoxazole) Tab 1 Tab PO BID 02/04/17 Reported Novolog Flexpen (Insulin Aspart) 100 Units/Ml Inj 1 Dose SQ QID 02/04/17 Reported SLIDING SCALE <70 = HYPOOGLYCEMIA PROTOCOL 70-130=0 UNITS 131-180=2 UNITS 181-240=4 UNITS 241-300=6 UNITS 301-350=8 UNITS 351-400=10 UNITS >400 = 12 UNITS AND CALL Tamsulosin HCl 0.4 Mg Cap 0.4 Mg PO QPM 02/04/17 Reported Lisinopril 2.5 Mg Tab 5 Mg PO DAILY 01/26/17 Reported TWO 2.5MG TABLETS Coumadin (Warfarin Sodium) 5 Mg Tab 2.5 Mg PO 5XWK 01/26/17 Reported 1.2 OF A 5MG TABLET>>, , SAT, SAT, SUN Ranexa (Ranolazine) 1,000 Mg Tab 1,000 Mg PO BID 01/26/17 Reported Coumadin (Warfarin Sodium) 5 Mg Tab 5 Mg PO 2XWK 05/27/15 Reported SATURDAY AND SATURDAY Glucophage (Metformin Hcl) 500 Mg Tab 500 Mg PO QAM 05/27/15 Reported Januvia (Sitagliptin Phosphate) 100 Mg Tab 100 Mg PO DAILY 05/27/15 Reported Glimepiride 2 Mg Tab 2 Mg PO DAILY 05/27/15 Reported Bumex (Bumetanide) 1 Mg Tab 1 Mg PO DAILY 05/27/15 Reported Pepcid (Famotidine) 20 Mg Tab 20 Mg PO DAILY 06/24/13 Reported Coreg (Carvedilol) 25 Mg Tab 25 Mg PO BID 06/24/13 Reported Lipitor (Atorvastatin) 40 Mg Tab 40 Mg PO DAILY 08/03/12 Reported Multivitamin (Multiple Vitamin) 1 Tab Tab 1 Tablet PO DAILY 08/03/12 Reported Ecotrin Or Generic (Aspirin) 81 Mg Tab 81 Mg PO DAILY 08/03/12 Reported Review of Systems Constitutional: + see HPI Physical Exam Date Time Temp Pulse Resp B/P (MAP) Pulse Ox O2 Delivery O2 Flow Rate FiO2 02/05/17 12:07 96 Room Air 02/05/17 10:53 37.4 82 18 129/64 (85) 100 Room Air 02/05/17 08:01 96 Room Air 02/05/17 07:36 36.7 77 18 151/77 (101) 96 Room Air 02/05/17 04:00 Room Air 02/05/17 04:00 36.7 77 18 162/88 (112) 98 Room Air 02/04/17 22:45 37.3 80 18 158/96 98 Room Air 02/04/17 22:00 80 17 130/86 02/04/17 21:30 82 24 02/04/17 21:23 77 02/04/17 21:01 136/76 02/04/17 21:00 76 13 02/04/17 20:30 82 14 02/04/17 20:01 129/86 02/04/17 20:00 83 20 02/04/17 19:30 80 15 02/04/17 19:00 72 20 149/84 02/04/17 18:28 77 18 02/04/17 18:23 76 15 02/04/17 18:18 76 21 02/04/17 18:13 77 19 02/04/17 18:08 84 16 02/04/17 18:03 83 20 02/04/17 18:01 145/80 02/04/17 17:58 81 20 02/04/17 17:53 75 18 02/04/17 17:48 77 19 02/04/17 17:43 87 18 02/04/17 17:38 80 21 02/04/17 17:33 82 21 02/04/17 17:28 75 21 02/04/17 17:24 71 02/04/17 17:23 87 14 98 02/04/17 17:22 37.4 82 20 117/78 99 Room Air 02/04/17 17:19 117/78 General Appearance: no apparent distress Neck: supple, no JVD, trachea midline Respiratory/Chest: no respiratory distress, no accessory muscle use, + decreased breath sounds Cardiovascular: regular rate, rhythm, no gallop, no murmur Abdomen: normal bowel sounds, non tender, soft Extremities: normal inspection, no pedal edema, no calf tenderness Neurologic/Psych: + disoriented (Open eyes to name called, followed simple command but mostly disoriented, appears sleepy) Skin: normal color, no jaundice, no rash Laboratory Results Last 24 Hours Test 02/04/17 17:30 02/04/17 17:41 02/05/17 07:09 02/05/17 11:08 White Blood Count 6.38 K/uL Red Blood Count 3.41 M/uL Hemoglobin 10.1 g/dL Hematocrit 30.2 % Mean Corpuscular Volume 88.6 fL Mean Corpuscular Hemoglobin 29.6 pg Mean Corpuscular Hemoglobin Concent 33.4 g/dl Platelet Count 127 K/uL Mean Platelet Volume 10.7 fL Neutrophils (%) (Auto) 66.2 % Lymphocytes (%) (Auto) 20.5 % Monocytes (%) (Auto) 8.9 % Eosinophils (%) (Auto) 3.9 % Basophils (%) (Auto) 0.3 % Neutrophils # (Auto) 4.22 K/uL Lymphocytes # (Auto) 1.31 K/uL Monocytes # (Auto) 0.57 K/uL Eosinophils # (Auto) 0.25 K/uL Basophils # (Auto) 0.02 K/uL RDW Standard Deviation 47.8 fL RDW Coefficient of Variation 14.7 % Immature Granulocyte % (Auto) 0.2 % Immature Granulocyte # (Auto) 0.01 K/uL Prothrombin Time 12.0 SECONDS Prothromb Time International Ratio 1.1 Activated Partial Thromboplast Time 28.1 SECONDS Partial Thromboplastin Ratio 1.1 Sodium Level 139 mmol/L Potassium Level 3.5 mmol/L Chloride Level 104 mmol/L Carbon Dioxide Level 27 mmol/L Anion Gap 8.0 mmol/L Blood Urea Nitrogen 24 mg/dl Creatinine 1.20 mg/dl Est Creatinine Clear Calc Drug Dose 53.5 ml/min Estimated GFR () 62.2 Estimated GFR (Non- 53.7 BUN/Creatinine Ratio 20.2 Random Glucose 117 mg/dl Calcium Level 8.1 mg/dl Total Bilirubin 0.7 mg/dl Direct Bilirubin 0.2 mg/dl Aspartate Amino Transf (AST/SGOT) 44 U/L Alanine Aminotransferase (ALT/SGPT) 74 U/L Alkaline Phosphatase 93 U/L Total Protein 6.4 gm/dl Albumin 2.7 gm/dl Lipase 203 U/L Bedside Lactic Acid Venous 1.54 mmol/L Bedside Glucose 113 mg/dl 157 mg/dl Impression Patient is a 86 year old male seen for dark bloody stools per report by [facility] staff prior to admission. No more BMs since admission. In ED rectal exam showed dark stools but not melanotic, + heme stools. Hgb close to baseline at 10. Plan - Obtain records from [facility] - Given recent stroke, also medical hx of significant cardiovascular disease, and recently stable presentation w/o active signs of GI bleeding, will defer endoscopic evals. - Continue Protonix 40mg IV BID - Monitor H/H and transfuse prn - Will watch peripherally, call if any acute change in status or signs of active GI bleeding. I have seen and examined the patient with VIKKI Cuevas whose note reflects our findings and plan.
--- NOTE | 2017-02-05 15:41 | Progress Note ---
Internal Med Progress Note Date of Service: Feb 05, 2017. Provider Documentation: SUBJECTIVE: The patient was seen and examined Feels drowsy today No more bleeding OBJECTIVE: Vital Signs-as noted below Exam: General-no distress at rest Eyes-normal ENT-normal Neck-Supple Lungs-Clear to auscultate Heart-Regular Abdomen-Benign,no masses,bowel sound present Extremities-Chronic skin changes Neuro-AA Pleasantly confused Lab data as noted below. ASSESSMENT & PLAN: Bright Red Blood Per Rectum-large quantity Likely from Hemorrhoid/diverticula bleed No Melena as per [facility] nursing Rectal exam done in the ER, no dark stools noted Hgb ~ 10; recheck in AM Has been on Zantac IV Observe in tele-no more episode GI consultation -appreciate input Pleasantly Confused Has been chronic No acute events Will observe Recent CVA -recent deterioration of his general condition -was not on any Aspirin and on Plavix-as per Nursing from [facility] -continue statin -PT/OT/speech -discharge planning back to [facility] on discharge CAD s/p CABG x3 continue statin continue DEJA-I Atrial Flutter s/p cardioversion no longer on Coumadin as per records will need to obtain records - HIM consulted talked to [facility] nursing staff-has not been on Coumadin and or Aspiring on discharge from [facility] on 01/30/17 will get records from [facility] Ischemic Cardiomyopathy s/p AICD hold diuretics for now gentle hydration stop IVFs when stable, and restart diuretics to prevent overload DVT ppx SCDs FULL CODE Vital Signs: Date Time Temp Pulse Resp B/P (MAP) Pulse Ox O2 Delivery O2 Flow Rate FiO2 02/06/17 16:00 Room Air 02/06/17 15:16 37.0 76 16 130/90 (103) 99 Room Air 02/06/17 12:10 96 Room Air 02/06/17 11:01 36.9 81 20 117/73 (88) 98 Room Air 02/06/17 08:27 96 Room Air 02/06/17 07:40 36.6 79 20 156/92 (113) 99 Room Air 02/06/17 04:25 36.8 85 18 156/96 (116) 97 Room Air 02/06/17 04:00 Room Air 02/06/17 00:11 37.3 80 18 141/70 (93) 98 Room Air 02/05/17 23:59 Room Air 02/05/17 20:17 36.6 84 20 162/74 (103) 97 Room Air 02/05/17 20:00 Room Air Lab Results: Results Past 24 Hours Test 02/05/17 20:45 02/06/17 06:20 02/06/17 06:49 02/06/17 11:14 Range/Units Bedside Glucose 180 133 207 70-99 mg/dl White Blood Count 5.62 4.8-10.8 K/uL Red Blood Count 3.36 4.7-6.1 M/uL Hemoglobin 10.0 14.0-18.0 g/dL Hematocrit 30.3 42-52 % Mean Corpuscular Volume 90.2 80-100 fL Mean Corpuscular Hemoglobin 29.8 25-34 pg Mean Corpuscular Hemoglobin Concent 33.0 32-36 g/dl RDW Standard Deviation 48.9 36.4-46.3 fL RDW Coefficient of Variation 14.7 11.5-14.5 % Platelet Count 117 130-400 K/uL Mean Platelet Volume 9.5 7.4-10.4 fL Sodium Level 138 136-145 mmol/L Potassium Level 3.9 3.5-5.1 mmol/L Chloride Level 108 98-107 mmol/L Carbon Dioxide Level 26 21-32 mmol/L Anion Gap 4.0 3-11 mmol/L Blood Urea Nitrogen 16 7-18 mg/dl Creatinine 0.97 0.60-1.40 mg/dl Est Creatinine Clear Calc Drug Dose 66.0 ml/min Estimated GFR () 80.5 Estimated GFR (Non- 69.4 BUN/Creatinine Ratio 16.0 10-20 Random Glucose 126 70-99 mg/dl Calcium Level 7.8 8.5-10.1 mg/dl Phosphorus Level 2.3 2.5-4.9 mg/dl Magnesium Level 2.2 1.8-2.4 mg/dl Test 02/06/17 16:27 Range/Units Bedside Glucose 139 70-99 mg/dl
[2017-02-05] MEDS: PANTOprazole INJ 40 MG in SYRINGE 0 ML IV SCH (20:13)
[2017-02-05] MEDS: TAMSULOSIN HCL 0.4 MG CAP PO SCH (20:13)
[2017-02-06] VITALS (9 sets, daily range): BP systolic 117–156; BP diastolic 70–96; PULSE 76–85; TEMP 36.3–37.3; O2SAT 93–99
[2017-02-06] MEDS: SODIUM CHLORIDE 0.9% 1000ML 1,000 ML IV SCH ×3 (02:12→15:10)
[2017-02-06 06:29] LABS: HEMATOCRIT 30.3 % (42-52); MEAN CELL VOLUME 90.2 fL (80-100); MEAN CORPUSCULAR HEMOGLOBIN 29.8 pg (25-34); MEAN PLATELET VOLUME 9.5 fL (7.4-10.4); PLATELET COUNT 117 K/uL (130-400); RED BLOOD COUNT 3.36 M/uL (4.7-6.1); WHITE BLOOD COUNT 5.62 K/uL (4.8-10.8)
[2017-02-06 07:00] LABS: POTASSIUM 3.9 mmol/L (3.5-5.1)
[2017-02-06 07:18] LABS: CALCIUM 7.8 mg/dl (8.5-10.1); CREATININE 0.97 mg/dl (0.60-1.40); MAGNESIUM 2.2 mg/dl (1.8-2.4); PHOSPHORUS 2.3 mg/dl (2.5-4.9)
[2017-02-06] MEDS: PANTOprazole INJ 40 MG in SYRINGE 0 ML IV SCH (07:38)
[2017-02-06] MEDS: CARVEDILOL 25 MG TAB PO SCH ×2 (07:38→21:16)
[2017-02-06] MEDS: LISINOPRIL 5 MG TAB PO SCH (07:39)
[2017-02-06] MEDS: ATORVASTATIN 20 MG TAB PO SCH (07:39)
[2017-02-06] MEDS: DOCUSATE SODIUM/SENNA 50/8.6MG TAB PO SCH (07:39)
--- NOTE | 2017-02-06 11:32 | Progress Note ---
Progress Note Date of Service Feb 06, 2017. Progress Note GI quick note: Patient is a 86 year old male seen for dark bloody stools per report by [facility] staff prior to admission. No more BMs since admission. In ED rectal exam showed dark stools but not melanotic, + heme stools. Hgb close to baseline at 10. No more s/s of GI bleeding overnight. Hgb stable at 10. Hospitalist (Dr. Lantigua) planning on possible DC to [facility] this afternoon. No contraindication for DC from GI standpoint.
--- NOTE | 2017-02-06 19:18 | Progress Note ---
Internal Med Progress Note Date of Service: Feb 06, 2017. Provider Documentation: SUBJECTIVE: The patient was seen and examined Feels drowsy today No more bleeding Much better today OOB on a chair OBJECTIVE: Vital Signs-as noted below Exam: General-no distress at rest Eyes-normal ENT-normal Neck-Supple Lungs-Clear to auscultate Heart-Regular Abdomen-Benign,no masses,bowel sound present Extremities-Chronic skin changes Neuro-AA Pleasantly confused but clinically much improved Lab data as noted below. 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 Hemorrhage -recent deterioration of his general condition -was not on any Aspirin and on Plavix-as per Nursing from [facility] -continue statin -PT/OT/speech -Supposed to be evaluated in 1 month by Neurology at [facility] CAD s/p CABG x3 continue statin continue DEJA-I Not on any Aspirin and or Coumadin due to recent hemorrhagic stroke Atrial Flutter s/p cardioversion no longer on Coumadin as per records will need to obtain records - HIM consulted talked to [facility] nursing staff-has not been on Coumadin and or Aspiring on discharge from [facility] on 01/30/17 will get records from [facility]-reviewed Ischemic Cardiomyopathy s/p AICD hold diuretics for now gentle hydration stop IVFs when stable, and restart diuretics to prevent overload DVT ppx SCDs FULL CODE Detailed discussion with the Discussed about kind of stroke and prognosis Discussed about the importance of aspirin and Coumadin- and the reason to hold those now Overall prognosis guarded and time will determine the progress of the disease. Likely to go back to [facility] in a day or two Vital Signs: Date Time Temp Pulse Resp B/P (MAP) Pulse Ox O2 Delivery O2 Flow Rate FiO2 02/06/17 16:00 Room Air 02/06/17 15:16 37.0 76 16 130/90 (103) 99 Room Air 02/06/17 12:10 96 Room Air 02/06/17 11:01 36.9 81 20 117/73 (88) 98 Room Air 02/06/17 08:27 96 Room Air 02/06/17 07:40 36.6 79 20 156/92 (113) 99 Room Air 02/06/17 04:25 36.8 85 18 156/96 (116) 97 Room Air 02/06/17 04:00 Room Air 02/06/17 00:11 37.3 80 18 141/70 (93) 98 Room Air 02/05/17 23:59 Room Air 02/05/17 20:17 36.6 84 20 162/74 (103) 97 Room Air 02/05/17 20:00 Room Air Lab Results: Results Past 24 Hours Test 02/05/17 20:45 02/06/17 06:20 02/06/17 06:49 02/06/17 11:14 Range/Units Bedside Glucose 180 133 207 70-99 mg/dl White Blood Count 5.62 4.8-10.8 K/uL Red Blood Count 3.36 4.7-6.1 M/uL Hemoglobin 10.0 14.0-18.0 g/dL Hematocrit 30.3 42-52 % Mean Corpuscular Volume 90.2 80-100 fL Mean Corpuscular Hemoglobin 29.8 25-34 pg Mean Corpuscular Hemoglobin Concent 33.0 32-36 g/dl RDW Standard Deviation 48.9 36.4-46.3 fL RDW Coefficient of Variation 14.7 11.5-14.5 % Platelet Count 117 130-400 K/uL Mean Platelet Volume 9.5 7.4-10.4 fL Sodium Level 138 136-145 mmol/L Potassium Level 3.9 3.5-5.1 mmol/L Chloride Level 108 98-107 mmol/L Carbon Dioxide Level 26 21-32 mmol/L Anion Gap 4.0 3-11 mmol/L Blood Urea Nitrogen 16 7-18 mg/dl Creatinine 0.97 0.60-1.40 mg/dl Est Creatinine Clear Calc Drug Dose 66.0 ml/min Estimated GFR () 80.5 Estimated GFR (Non- 69.4 BUN/Creatinine Ratio 16.0 10-20 Random Glucose 126 70-99 mg/dl Calcium Level 7.8 8.5-10.1 mg/dl Phosphorus Level 2.3 2.5-4.9 mg/dl Magnesium Level 2.2 1.8-2.4 mg/dl Test 02/06/17 16:27 Range/Units Bedside Glucose 139 70-99 mg/dl
[2017-02-06] MEDS: TAMSULOSIN HCL 0.4 MG CAP PO SCH (21:16)
[2017-02-07 03:28] VITALS: BP 152/82; PULSE 81; TEMP 37.1; O2SAT 99
[2017-02-07] MEDS: SODIUM CHLORIDE 0.9% 1000ML 1,000 ML IV SCH ×2 (04:19→16:39)
[2017-02-07 06:39] LABS: MEAN CELL VOLUME 88.4 fL (80-100); MEAN CORPUSCULAR HEMOGLOBIN 29.3 pg (25-34); MEAN CORPUSCULAR HGB CONC 33.1 g/dl (32-36); MEAN PLATELET VOLUME 10.1 fL (7.4-10.4); PLATELET COUNT 131 K/uL (130-400); RED BLOOD COUNT 3.28 M/uL (4.7-6.1); WHITE BLOOD COUNT 5.59 K/uL (4.8-10.8)
[2017-02-07 07:14] LABS: BUN/CREATININE RATIO 14.3 (10-20); CALCIUM 7.9 mg/dl (8.5-10.1); CREATININE 0.89 mg/dl (0.60-1.40); POTASSIUM 3.8 mmol/L (3.5-5.1)
[2017-02-07 08:00] VITALS: BP 134/72; PULSE 70; TEMP 37; O2SAT 98
[2017-02-07] MEDS: CARVEDILOL 25 MG TAB PO SCH ×2 (08:19→20:18)
[2017-02-07] MEDS: DOCUSATE SODIUM/SENNA 50/8.6MG TAB PO SCH (08:19)
[2017-02-07] MEDS: FAMOTIDINE 20 MG TAB PO SCH (08:20)
[2017-02-07] MEDS: MULTIVITAMIN TAB PO SCH (08:20)
[2017-02-07] MEDS: ATORVASTATIN 20 MG TAB PO SCH (08:20)
[2017-02-07] MEDS: LISINOPRIL 5 MG TAB PO SCH (08:20)
[2017-02-07] MEDS ORDERED: BISACODYL 10 MG SUPP PR STA (08:53)
--- NOTE | 2017-02-07 09:26 | Progress Note ---
Internal Med Progress Note Date of Service: Feb 07, 2017. Provider Documentation: SUBJECTIVE: The patient was seen and examined No more bleeding Much better today OOB on a chair Bowel is not moved yet Denies any symptoms OBJECTIVE: Vital Signs-as noted below Exam: General-no distress at rest Eyes-normal ENT-normal Neck-Supple Lungs-Clear to auscultate Heart-Regular Abdomen-Benign,no masses,bowel sound present Extremities-Chronic skin changes Neuro-AA Pleasantly confused but clinically much improved Lab data as noted below. 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 Hemorrhage -recent deterioration of his general condition -was not on any Aspirin and on Plavix-as per Nursing from [facility] -continue statin -PT/OT/speech -Supposed to be evaluated in 1 month by Neurology at [facility]-will inform the facility to arrange that on discharge CAD s/p CABG x3 continue statin continue DEJA-I Not on any Aspirin and or Coumadin due to recent hemorrhagic stroke Atrial Flutter s/p cardioversion no longer on Coumadin as per records will need to obtain records - HIM consulted talked to [facility] nursing staff-has not been on Coumadin and or Aspiring on discharge from [facility] on 01/30/17 will get records from [facility]-reviewed Ischemic Cardiomyopathy s/p AICD hold diuretics for now gentle hydration stop IVFs when stable, and restart diuretics to prevent overload DVT ppx SCDs FULL CODE Detailed discussion with the Discussed about kind of stroke and prognosis Discussed about the importance of aspirin and Coumadin- and the reason to hold those now Overall prognosis guarded and time will determine the progress of the disease. Likely to go back to [facility] in a day or two Vital Signs: Date Time Temp Pulse Resp B/P (MAP) Pulse Ox O2 Delivery O2 Flow Rate FiO2 02/07/17 08:00 37.0 70 20 134/72 (92) 98 Room Air 02/07/17 08:00 Room Air 02/07/17 04:00 Room Air 02/07/17 03:28 37.1 81 18 152/82 (105) 99 Room Air 02/06/17 23:59 Room Air 02/06/17 23:06 36.3 76 19 155/79 (104) 98 Room Air 02/06/17 20:00 Room Air 02/06/17 19:12 36.9 76 18 138/81 (100) 93 Room Air 02/06/17 16:00 Room Air 02/06/17 15:16 37.0 76 16 130/90 (103) 99 Room Air 02/06/17 12:10 96 Room Air 02/06/17 11:01 36.9 81 20 117/73 (88) 98 Room Air Lab Results: Results Past 24 Hours Test 02/06/17 11:14 02/06/17 16:27 02/06/17 20:28 02/07/17 06:19 Range/Units Bedside Glucose 207 139 137 70-99 mg/dl White Blood Count 5.59 4.8-10.8 K/uL Red Blood Count 3.28 4.7-6.1 M/uL Hemoglobin 9.6 14.0-18.0 g/dL Hematocrit 29.0 42-52 % Mean Corpuscular Volume 88.4 80-100 fL Mean Corpuscular Hemoglobin 29.3 25-34 pg Mean Corpuscular Hemoglobin Concent 33.1 32-36 g/dl RDW Standard Deviation 46.8 36.4-46.3 fL RDW Coefficient of Variation 14.5 11.5-14.5 % Platelet Count 131 130-400 K/uL Mean Platelet Volume 10.1 7.4-10.4 fL Sodium Level 139 136-145 mmol/L Potassium Level 3.8 3.5-5.1 mmol/L Chloride Level 108 98-107 mmol/L Carbon Dioxide Level 22 21-32 mmol/L Anion Gap 9.0 3-11 mmol/L Blood Urea Nitrogen 13 7-18 mg/dl Creatinine 0.89 0.60-1.40 mg/dl Est Creatinine Clear Calc Drug Dose 72.2 ml/min Estimated GFR () 88.5 Estimated GFR (Non- 76.3 BUN/Creatinine Ratio 14.3 10-20 Random Glucose 125 70-99 mg/dl Calcium Level 7.9 8.5-10.1 mg/dl Test 02/07/17 06:51 Range/Units Bedside Glucose 123 70-99 mg/dl
[2017-02-07 11:20] VITALS: BP 100/65; PULSE 76; TEMP 36.5; O2SAT 99
[2017-02-07] MEDS ORDERED: ANUSOL SUPP 1 EA PR PRN (11:30)
--- NOTE | 2017-02-07 11:31 | Progress Note ---
Progress Note Date of Service Feb 07, 2017. Progress Note Patient is a 86 year old male previously seen for dark bloody stools per report by [facility] staff prior to admission, heme positive in ED. He hasn't had rectal bleeding since admission though I received a page by staff reporter this morning. RN noted that pt had Bisacodyl suppository this AM and then had BM w dark blood and clots. H/H 9.6, pt denies any abd pain, n/v, in fact also didn't remember having rectal bleeding. He refused a rectal exam today. Will Rx Anusol ND daily prn rectal bleeding which I suspect may be related to hemorrhoidal bleed. Again not a good candidate for endoscopic evals given recent stroke. Will defeer to primary team on timing of DC back to [facility]. Pls call if new questions/concerns.
[2017-02-07 15:18] VITALS: BP 154/90; PULSE 79; TEMP 36.7; O2SAT 98
[2017-02-07 19:22] VITALS: BP 150/83; PULSE 79; TEMP 36.7; O2SAT 98
[2017-02-07] MEDS: TAMSULOSIN HCL 0.4 MG CAP PO SCH (20:17)
[2017-02-08] VITALS: BP 150/80; PULSE 79; TEMP 36.9; O2SAT 97
[2017-02-08 04:00] VITALS: O2SAT 95
[2017-02-08 04:42] VITALS: BP 148/84; PULSE 79; TEMP 36.9; O2SAT 95
[2017-02-08] MEDS: SODIUM CHLORIDE 0.9% 1000ML 1,000 ML IV SCH (05:35)
[2017-02-08 07:22] VITALS: BP 150/78; PULSE 73; TEMP 36.4; O2SAT 99
[2017-02-08] MEDS: DOCUSATE SODIUM/SENNA 50/8.6MG TAB PO SCH (07:53)
[2017-02-08] MEDS: MULTIVITAMIN TAB PO SCH (07:53)
[2017-02-08] MEDS: LISINOPRIL 5 MG TAB PO SCH (07:53)
[2017-02-08] MEDS: FAMOTIDINE 20 MG TAB PO SCH (07:53)
[2017-02-08] MEDS: CARVEDILOL 25 MG TAB PO SCH (07:53)
[2017-02-08] MEDS: ATORVASTATIN 20 MG TAB PO SCH (07:54)
[2017-02-08 08:21] LABS: HEMATOCRIT 29.3 % (42-52); MEAN CELL VOLUME 88.5 fL (80-100); MEAN CORPUSCULAR HEMOGLOBIN 29.6 pg (25-34); MEAN CORPUSCULAR HGB CONC 33.4 g/dl (32-36); PLATELET COUNT 135 K/uL (130-400); RED BLOOD COUNT 3.31 M/uL (4.7-6.1)
[2017-02-08 08:51] LABS: BUN/CREATININE RATIO 14.5 (10-20); CALCIUM 7.8 mg/dl (8.5-10.1); CREATININE 0.85 mg/dl (0.60-1.40); MAGNESIUM 2.1 mg/dl (1.8-2.4); POTASSIUM 3.7 mmol/L (3.5-5.1)
[2017-02-08 10:40] VITALS: BP 101/67; PULSE 89; TEMP 37; O2SAT 98
--- NOTE | 2017-02-08 10:54 | Progress Note ---
Internal Med Progress Note Date of Service: Feb 08, 2017. Provider Documentation: SUBJECTIVE: The patient was seen and examined No more bleeding Bowel moved yesterday-bloody Feels a lot better today and denies any complaints OBJECTIVE: Vital Signs-as noted below Exam: General-no distress at rest Eyes-normal ENT-normal Neck-Supple Lungs-Clear to auscultate Heart-Regular Abdomen-Benign,no masses,bowel sound present Extremities-Chronic skin changes Neuro-AA Pleasantly confused but clinically much improved Lab data as noted below. ASSESSMENT & PLAN: Bright Red Blood Per Rectum-large quantity Likely from Hemorrhoid/diverticula bleed No Melena as per 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 Hemorrhage -recent deterioration of his general condition -was not on any Aspirin and on Plavix-as per Nursing from [facility] -continue statin -PT/OT/speech -Supposed to be evaluated in 1 month by Neurology at [facility]-will inform the facility to arrange that on discharge CAD s/p CABG x3 continue statin continue DEJA-I Not on any Aspirin and or Coumadin due to recent hemorrhagic stroke Denies any symptoms Atrial Flutter s/p cardioversion no longer on Coumadin as per records will need to obtain records - HIM consulted talked to [facility] nursing staff-has not been on Coumadin and or Aspiring on discharge from [facility] on 01/30/17 will get records from [facility]-reviewed Ischemic Cardiomyopathy s/p AICD hold diuretics for now gentle hydration stop IVFs when stable, and restart diuretics to prevent overload DVT ppx SCDs FULL CODE Detailed discussion with the Discussed about kind of stroke and prognosis Discussed about the importance of aspirin and Coumadin- and the reason to hold those now Overall prognosis guarded and time will determine the progress of the disease. Likely to go back to [facility] 02/08/17 Vital Signs: Date Time Temp Pulse Resp B/P (MAP) Pulse Ox O2 Delivery O2 Flow Rate FiO2 02/08/17 08:05 Room Air 02/08/17 07:22 36.4 73 20 150/78 (102) 99 02/08/17 04:42 36.9 79 18 148/84 (105) 95 Room Air 02/08/17 04:00 95 Room Air 02/08/17 00:00 36.9 79 25 150/80 (103) 97 Room Air 02/08/17 00:00 97 Room Air 02/07/17 20:00 Room Air 02/07/17 19:22 36.7 79 18 150/83 (105) 98 Room Air 02/07/17 16:00 Room Air 02/07/17 15:18 36.7 79 18 154/90 (111) 98 Room Air 02/07/17 12:00 Room Air 02/07/17 11:20 36.5 76 18 100/65 (77) 99 Room Air Lab Results: Results Past 24 Hours Test 02/07/17 11:12 02/07/17 16:24 02/08/17 07:44 Range/Units Bedside Glucose 222 159 70-99 mg/dl White Blood Count 5.60 4.8-10.8 K/uL Red Blood Count 3.31 4.7-6.1 M/uL Hemoglobin 9.8 14.0-18.0 g/dL Hematocrit 29.3 42-52 % Mean Corpuscular Volume 88.5 80-100 fL Mean Corpuscular Hemoglobin 29.6 25-34 pg Mean Corpuscular Hemoglobin Concent 33.4 32-36 g/dl RDW Standard Deviation 46.9 36.4-46.3 fL RDW Coefficient of Variation 14.4 11.5-14.5 % Platelet Count 135 130-400 K/uL Mean Platelet Volume 10.0 7.4-10.4 fL Sodium Level 139 136-145 mmol/L Potassium Level 3.7 3.5-5.1 mmol/L Chloride Level 109 98-107 mmol/L Carbon Dioxide Level 20 21-32 mmol/L Anion Gap 10.0 3-11 mmol/L Blood Urea Nitrogen 12 7-18 mg/dl Creatinine 0.85 0.60-1.40 mg/dl Est Creatinine Clear Calc Drug Dose 75.6 ml/min Estimated GFR () 90.2 Estimated GFR (Non- 77.8 BUN/Creatinine Ratio 14.5 10-20 Random Glucose 122 70-99 mg/dl Calcium Level 7.8 8.5-10.1 mg/dl Magnesium Level 2.1 1.8-2.4 mg/dl
[2017-02-08] MEDS ORDERED: ANSS PR (12:22)
--- NOTE | 2017-02-08 12:32 | Discharge Instructions ---
Discharge Instructions Date of Service Feb 08, 2017. Admission Reason for Admission: Gi Bleed Discharge Discharge Diagnosis / Problem: Rectal Bleed-Likely Hemorroidal with Stable HB,s /p Hemorrhagic stroke,CAD Discharge Goals Goal(s): Prevent Disease Progression Activity Recommendations Activity Level: Assistance Required Therapies: Physical Therapy, Occupational Therapy, Speech Therapy . Additional Information Patient informed of condition: Yes Advance Directives: No DNR: No Level of Care: Skilled Communicable Disease: No Prognosis: Stable Oxygen at (LPM): 2 liters/min via NC as needed Hernandez Catheter: Yes (Came with it) Instructions / Follow-Up Instructions / Follow-Up Please make an appointment with DR Gustafson in 1 week.HE WILL NEED TO HAVE A FOLLOW UP WITH [facility](NEUROSURGERY) IN 1 MONTH FOLLOWING DISCHARGE FROM THERE PER THEIR DISCHARGE INSTRUCTION Current Hospital Diet Patient's current hospital diet: AHA Diet (Heart Healthy) Discharge Diet Recommended Diet: AHA Diet (Heart Healthy), Diabetes Type 2 Diet Pending Studies Studies pending at discharge: no Medical Emergencies . Who to Call and When: Medical Emergencies: If at any time you feel your situation is an emergency, please call 911 immediately. . Non-Emergent Contact Non-Emergency issues call your: Primary Care Provider . Past History Medical & Surgical History: (1) Hemorrhagic stroke (2) AORTOCORONARY BYPASS (3) Aortic valve stenosis (4) HYPERLIPIDEMIA NEC/NOS (5) Percutaneous transluminal coronary angioplasty (6) Placement of stent in coronary artery (7) Chronic ischemic heart disease (8) DIAB ALEIDA WO COMPL, TYPE II OR UNSPEC TYPE, NOT UNCNTRLD (9) Hyperlipidemia (10) Ischemic cardiomyopathy (11) GI bleed (12) H/O aortic valve replacement . "Provider Documentation" section prepared by Odette Lantigua. . Core Measure Problem Core Measures: None
[2017-02-08 12:49] VITALS: BP 101/67; PULSE 89; TEMP 37; O2SAT 98
--- NOTE | 2017-02-08 18:50 | Discharge Summary ---
Discharge Summary Date of Service Feb 08, 2017. Discharge Summary Admission Date: Feb 04, 2017 at 21:35 Discharge Date: Feb 08, 2017 Discharge Disposition: [facility] facility Principal Diagnosis: Rectal Bleeding,Likely Hemorrhoidal Secondary Diagnoses/Problems: Please see H&P and Hospital Progress note Consultations: GI Medication Reconciliation New Medications: Phenylephrine In Hard Fat (Amna-Med) 1 Ea Supp 1 EA DC DAILY PRN for Hemorrhoids for 10 Days, #10 SUPP Continued Medications: Acetaminophen (Tylenol) 500 Mg Tab 500 MG PO Q4 PRN for Pain, TAB Atorvastatin (Lipitor) 40 Mg Tab 40 MG PO DAILY, TAB Bisacodyl (Cvs Bisacodyl) 10 Mg Sup 10 MG RE Q24H PRN for Constipation Bumetanide (Bumex) 1 Mg Tab 1 MG PO DAILY Carvedilol (Coreg) 25 Mg Tab 25 MG PO BID, TAB Docusate Sodium (Diocto) 100 Mg/10 Ml Syrp 10 ML PO BID PRN for Constipation Famotidine (Pepcid) 20 Mg Tab 20 MG PO DAILY, TAB Glimepiride (Glimepiride) 2 Mg Tab 2 MG PO DAILY, TAB 3 Refills Insulin Aspart (Novolog Flexpen) 100 Units/Ml Inj 1 DOSE SQ QID SLIDING SCALE <70 = HYPOOGLYCEMIA PROTOCOL 70-130=0 UNITS 131-180=2 UNITS 181-240=4 UNITS 241-300=6 UNITS 301-350=8 UNITS 351-400=10 UNITS >400 = 12 UNITS AND CALL Lisinopril (Lisinopril) 2.5 Mg Tab 5 MG PO DAILY TWO 2.5MG TABLETS Magnesium Hydroxide (Milk of Magnesia) 30 Ml Susp 30 ML PO Q24H PRN for Constipation Metformin Hcl (Glucophage) 500 Mg Tab 500 MG PO QAM, TAB Multiple Vitamin (Multivitamin) 1 Tab Tab 1 TABLET PO DAILY, TAB Polyethylene Glycol 3350 (Miralax) 1 Pow Pow 17 GM PO DAILY, #255 GM Ranolazine (Ranexa) 1,000 Mg Tab 1000 MG PO BID Senna/Docusate Sod (Senokot S) 1 Tab Tab 1 TAB PO Q24H, TAB Sitagliptin Phosphate (Januvia) 100 Mg Tab 100 MG PO DAILY, TAB Sodium Phosphate/Biphosphate (Fleet Enema) Veronica 1 EA DC DAILY PRN for Constipation, BTL Tamsulosin HCl (Tamsulosin HCl) 0.4 Mg Cap 0.4 MG PO QPM Discontinued Medications: Aspirin Enteric Coated (Ecotrin Or Generic) 81 Mg Tab 81 MG PO DAILY, TAB Sulfa/Trimethoprim (Bactrim Ds 800MG/160MG) Tab 1 TAB PO BID, #6 TAB Warfarin Sodium (Coumadin) 5 Mg Tab 5 MG PO 2XWK SATURDAY AND SATURDAY Warfarin Sodium (Coumadin) 5 Mg Tab 2.5 MG PO 5XWK 1.2 OF A 5MG TABLET>>ES, TH, WED, SAT, SUN Admission Information HPI (per Admitting provider): This is an 86 year old male with a PMH of CAD s/p CABG x3, ischemic cardiomyopathy s/p AICD, aortic stenosis s/p TAVR, atrial flutter s/p cardioversion, DM2, HTN, HLD with recent stroke - sent over by [facility] due to dark, melanotic stools. Most of the history is obtained by the records at [facility]; he was sent over there for CVA; has been confused at [facility] ; they have note darker stools, so he was sent over. Upon presentation, stools were not noted to be very dark - Hgb > 10; no tachycardia/tachypnea. Past Medical/Surgical History Medical Problems: (1) Angina Status: Chronic (2) Aortic valve stenosis Status: Chronic (3) AORTOCORONARY BYPASS Status: Resolved (4) Chronic ischemic heart disease Status: Chronic (5) DIAB ALEIDA WO COMPL, TYPE II OR UNSPEC TYPE, NOT UNCNTRLD Status: Chronic (6) Epistaxis Status: Resolved (7) Hyperlipidemia Status: Chronic (8) HYPERLIPIDEMIA NEC/NOS Status: Chronic (9) Influenza Status: Resolved (10) Ischemic cardiomyopathy Status: Chronic (11) Percutaneous transluminal coronary angioplasty Status: Resolved (12) Placement of stent in coronary artery Status: Resolved (13) SHORTNESS OF BREATH Status: Chronic Family History Omitted due to patient age Social History Smoking Status: Former Smoker Marital Status: Housing status: lives with family Immunizations History of Influenza Vaccine: No History of Tetanus Vaccine?: Yes History of Pneumococcal: No History of Hepatitis B Vaccine: No Multi-Drug Resistant Organisms History of MDRO: No Allergies Coded Allergies: No Known Allergies (Unverified , 02/04/17) Home Medications Scheduled Aspirin Enteric Coated (Ecotrin Or Generic), 81 MG PO DAILY Atorvastatin (Lipitor), 40 MG PO DAILY Bumetanide (Bumex), 1 MG PO DAILY Carvedilol (Coreg), 25 MG PO BID Famotidine (Pepcid), 20 MG PO DAILY Glimepiride (Glimepiride), 2 MG PO DAILY Insulin Aspart (Novolog Flexpen), 1 DOSE SQ QID Lisinopril (Lisinopril), 5 MG PO DAILY Metformin Hcl (Glucophage), 500 MG PO QAM Multiple Vitamin (Multivitamin), 1 TABLET PO DAILY Polyethylene Glycol 3350 (Miralax), 17 GM PO DAILY Ranolazine (Ranexa), 1,000 MG PO BID Senna/Docusate Sod (Senokot S), 1 TAB PO Q24H Sitagliptin Phosphate (Januvia), 100 MG PO DAILY Sulfa/Trimethoprim (Bactrim Ds 800MG/160MG), 1 TAB PO BID Tamsulosin HCl (Tamsulosin HCl), 0.4 MG PO QPM Warfarin Sodium (Coumadin), 5 MG PO 2XWK Warfarin Sodium (Coumadin), 2.5 MG PO 5XWK Scheduled PRN Acetaminophen (Tylenol), 500 MG PO Q4 PRN for Pain Bisacodyl (Cvs Bisacodyl), 10 MG RE Q24H PRN for Constipation Docusate Sodium (Diocto), 10 ML PO BID PRN for Constipation Magnesium Hydroxide (Milk of Magnesia), 30 ML PO Q24H PRN for Constipation Sodium Phosphate/Biphosphate (Fleet Enema), 1 EA DC DAILY PRN for Constipation Review of Systems cannot obtain due to patient's mental status Physical Ex - H&P Physical Exam Vital Signs Date Time Temp Pulse Resp B/P (MAP) Pulse Ox O2 Delivery O2 Flow Rate FiO2 02/05/17 04:00 Room Air 02/05/17 04:00 36.7 77 18 162/88 (112) 98 Room Air 02/04/17 22:45 37.3 80 18 158/96 98 Room Air 02/04/17 22:00 80 17 130/86 02/04/17 21:30 82 24 02/04/17 21:23 77 02/04/17 21:01 136/76 02/04/17 21:00 76 13 02/04/17 20:30 82 14 02/04/17 20:01 129/86 02/04/17 20:00 83 20 02/04/17 19:30 80 15 02/04/17 19:00 72 20 149/84 02/04/17 18:28 77 18 02/04/17 18:23 76 15 02/04/17 18:18 76 21 02/04/17 18:13 77 19 02/04/17 18:08 84 16 02/04/17 18:03 83 20 02/04/17 18:01 145/80 02/04/17 17:58 81 20 02/04/17 17:53 75 18 02/04/17 17:48 77 19 02/04/17 17:43 87 18 02/04/17 17:38 80 21 02/04/17 17:33 82 21 02/04/17 17:28 75 21 02/04/17 17:24 71 02/04/17 17:23 87 14 98 02/04/17 17:22 37.4 82 20 117/78 99 Room Air 02/04/17 17:19 117/78 General Appearance: no apparent distress, + pertinent finding (disoriented, unsure of why he is here) Head: normocephalic, atraumatic Eyes: normal inspection ENT: hearing grossly normal Neck: supple Respiratory/Chest: lungs clear, normal breath sounds, no respiratory distress, no accessory muscle use Cardiovascular: regular rate, rhythm, no edema, no murmur Abdomen/GI: normal bowel sounds, non tender, soft Extremities/Musculoskelatal: normal capillary refill, no pedal edema Neurologic/Psych: no motor/sensory deficits, alert, + disoriented Skin: normal color Lymphatic: no adenopathy Diagnostics - H&P Diagnostics Laboratory Results Results Past 24 Hours Test 02/04/17 17:30 02/04/17 17:41 Range/Units White Blood Count 6.38 4.8-10.8 K/uL Red Blood Count 3.41 4.7-6.1 M/uL Hemoglobin 10.1 14.0-18.0 g/dL Hematocrit 30.2 42-52 % Mean Corpuscular Volume 88.6 80-100 fL Mean Corpuscular Hemoglobin 29.6 25-34 pg Mean Corpuscular Hemoglobin Concent 33.4 32-36 g/dl Platelet Count 127 130-400 K/uL Mean Platelet Volume 10.7 7.4-10.4 fL Neutrophils (%) (Auto) 66.2 % Lymphocytes (%) (Auto) 20.5 % Monocytes (%) (Auto) 8.9 % Eosinophils (%) (Auto) 3.9 % Basophils (%) (Auto) 0.3 % Neutrophils # (Auto) 4.22 1.4-6.5 K/uL Lymphocytes # (Auto) 1.31 1.2-3.4 K/uL Monocytes # (Auto) 0.57 0.11-0.59 K/uL Eosinophils # (Auto) 0.25 0-0.5 K/uL Basophils # (Auto) 0.02 0-0.2 K/uL RDW Standard Deviation 47.8 36.4-46.3 fL RDW Coefficient of Variation 14.7 11.5-14.5 % Immature Granulocyte % (Auto) 0.2 % Immature Granulocyte # (Auto) 0.01 0.00-0.02 K/uL Prothrombin Time 12.0 9.0-12.0 SECONDS Prothromb Time International Ratio 1.1 0.9-1.1 Activated Partial Thromboplast Time 28.1 21.0-31.0 SECONDS Partial Thromboplastin Ratio 1.1 Sodium Level 139 136-145 mmol/L Potassium Level 3.5 3.5-5.1 mmol/L Chloride Level 104 98-107 mmol/L Carbon Dioxide Level 27 21-32 mmol/L Anion Gap 8.0 3-11 mmol/L Blood Urea Nitrogen 24 7-18 mg/dl Creatinine 1.20 0.60-1.40 mg/dl Est Creatinine Clear Calc Drug Dose 53.5 ml/min Estimated GFR () 62.2 Estimated GFR (Non- 53.7 BUN/Creatinine Ratio 20.2 10-20 Random Glucose 117 70-99 mg/dl Calcium Level 8.1 8.5-10.1 mg/dl Total Bilirubin 0.7 0.2-1 mg/dl Direct Bilirubin 0.2 0-0.2 mg/dl Aspartate Amino Transf (AST/SGOT) 44 15-37 U/L Alanine Aminotransferase (ALT/SGPT) 74 12-78 U/L Alkaline Phosphatase 93 45-117 U/L Total Protein 6.4 6.4-8.2 gm/dl Albumin 2.7 3.4-5.0 gm/dl Lipase 203 73-393 U/L Bedside Lactic Acid Venous 1.54 0.90-1.70 mmol/L Diagnostic Radiology KUB CLINICAL HISTORY: Abdominal pain. GI bleed. COMPARISON STUDY: No previous studies for comparison. FINDINGS: There is no pathologic bowel dilatation. There are multiple pelvic basin calcifications. These likely represent phleboliths. There is no conventional radiographic evidence of organomegaly. IMPRESSION: No evidence of pathologic bowel dilatation. CHEST ONE VIEW PORTABLE CLINICAL HISTORY: Abdominal pain. GI bleed. COMPARISON STUDY: 01/26/2017 FINDINGS: The heart is enlarged. There is a left subclavian pacer/defibrillator present. There is no failure. There is no focal pulmonary consolidation. There are no pleural effusions. There is stable mild elevation right hemidiaphragm. There is no free intraperitoneal air. There is aortic valve prosthesis.[ IMPRESSION: No active disease in the chest. EKG Atrial-sensed ventricular-paced rhythm Abnormal ECG Impression - H&P Impression Assessment and Plan This is an 86 year old male with a PMH of CAD s/p CABG x3, ischemic cardiomyopathy s/p AICD, aortic stenosis s/p TAVR, atrial flutter s/p cardioversion, DM2, HTN, HLD with recent stroke sent by [facility] due to melena Melena unsure of amount rectal exam done in the ER, no dark stools noted Hgb ~ 10; recheck in AM will do Zantac IV IVFs observe in tele GI consultation for possible scope if needed Recent CVA hold aspirin due to melena continue statin PT/OT/speech discharge planning back to [facility] on discharge CAD s/p CABG x3 hold aspirin continue statin continue DEJA-I Atrial Flutter s/p cardioversion no longer on Coumadin as per records will need to obtain records - HIM consulted Ischemic Cardiomyopathy s/p AICD hold diuretics gentle hydration stop IVFs when stable, and restart diuretics to prevent overload DVT ppx SCDs FULL CODE Advanced Directives Existing Living Will: No Existing Power of Clinical Data Analyst: No VTE Prophylaxis VTE Risk Assessment Done? Y/N: Yes Risk Level: High Physical Exam (per Admitting): General Appearance: no apparent distress, + pertinent finding (disoriented, unsure of why he is here) Head: normocephalic, atraumatic Eyes: normal inspection ENT: hearing grossly normal Neck: supple Respiratory/Chest: lungs clear, normal breath sounds, no respiratory distress, no accessory muscle use Cardiovascular: regular rate, rhythm, no edema, no murmur Abdomen/GI: normal bowel sounds, non tender, soft Extremities/Musculoskelatal: normal capillary refill, no pedal edema Neurologic/Psych: no motor/sensory deficits, alert, + disoriented Skin: normal color Lymphatic: no adenopathy Hospital Course Bright Red Blood Per Rectum-large quantity Likely from Hemorrhoid/diverticula bleed No Melena as per [facility] nursing Rectal exam done in the ER, no dark stools noted Hgb ~ 10; recheck in AM Has been on Zantac IV Observe in tele-no more episode GI consultation -appreciate input No more bleeding and Hb remains stable One episode of Bloody bowel movement yesterday Hb is not dropped Likely secondary to Hemorrhoids Not a candidate for any Colonoscopy-recent Stroke Discharged to [facility] Confused Has been chronic No acute events Will observe-much better today His affect and confusion are likely the effect of recent Stroke Recent CVA 01/30/17-Intra cerebral Hemorrhage -recent deterioration of his general condition -was not on any Aspirin and on Plavix-as per Nursing from [facility] -continue statin -PT/OT/speech -Supposed to be evaluated in 1 month by Neurology at [facility]will inform the facility to arrange that on discharge CAD s/p CABG x3 continue statin continue DEJA-I Not on any Aspirin and or Coumadin due to recent hemorrhagic stroke Denies any symptoms Atrial Flutter s/p cardioversion no longer on Coumadin as per records will need to obtain records - HIM consulted talked to [facility] nursing staff-has not been on Coumadin and or Aspiring on discharge [place] [facility] [place]17 will get records from [facility]reviewed Ischemic Cardiomyopathy s/p AICD hold diuretics for now gentle hydration stop IVFs when stable, and restart diuretics to prevent overload DVT ppx SCDs FULL CODE Detailed discussion with the Discussed about kind of stroke and prognosis Discussed about the importance of aspirin and Coumadin- and the reason to hold those now Overall prognosis guarded and time will determine the progress of the disease. Likely to go back to [facility] 02/08/17 Total time spent on discharge = 35 minutes This includes examination of the patient, discharge planning, medication reconciliation, and communication with other providers. Discharge Instructions Date of Service Feb 08, 2017. Admission Reason for Admission: Gi Bleed Discharge Discharge Diagnosis / Problem: Rectal Bleed-Likely Hemorroidal with Stable HB,s /p Hemorrhagic stroke,CAD Discharge Goals Goal(s): Prevent Disease Progression Activity Recommendations Activity Level: Assistance Required Therapies: Physical Therapy, Occupational Therapy, Speech Therapy . Additional Information Patient informed of condition: Yes Advance Directives: No DNR: No Level of Care: Skilled Communicable Disease: No Prognosis: Stable Oxygen at (LPM): 2 liters/min via NC as needed Hernandez Catheter: Yes (Came with it) Instructions / Follow-Up Instructions / Follow-Up Please make an appointment with DR Gustafson in 1 week.HE WILL NEED TO HAVE A FOLLOW UP WITH [facility](NEUROSURGERY) IN 1 MONTH FOLLOWING DISCHARGE FROM THERE PER THEIR DISCHARGE INSTRUCTION Current Hospital Diet Patient's current hospital diet: AHA Diet (Heart Healthy) Discharge Diet Recommended Diet: AHA Diet (Heart Healthy), Diabetes Type 2 Diet Pending Studies Studies pending at discharge: no Medical Emergencies . Who to Call and When: Medical Emergencies: If at any time you feel your situation is an emergency, please call 911 immediately. . Non-Emergent Contact Non-Emergency issues call your: Primary Care Provider . Past History Medical & Surgical History: (1) Hemorrhagic stroke (2) AORTOCORONARY BYPASS (3) Aortic valve stenosis (4) HYPERLIPIDEMIA NEC/NOS (5) Percutaneous transluminal coronary angioplasty (6) Placement of stent in coronary artery (7) Chronic ischemic heart disease (8) DIAB ALEIDA WO COMPL, TYPE II OR UNSPEC TYPE, NOT UNCNTRLD (9) Hyperlipidemia (10) Ischemic cardiomyopathy (11) GI bleed (12) H/O aortic valve replacement . "Provider Documentation" section prepared by Odette Lantigua. . Core Measure Problem Core Measures: None <Electronically signed by Odette Lantigua M.D.> Signed: 02/08/17 2238 Additional Copies To Josiah Gustafson III, M.D.
== END 2017-02-08 14:29 ==
LOC: EDBD 17:08 → C.EDC 17:10 → C.2T 21:35 → EDBEDREQ 21:40 → ENRESERV 21:50
PROVIDERS: ADMIT Family Medicine; ATTEND Internal Medicine
DX: K62.5 Hemorrhage of anus and rectum (principal); I61.9 Nontraumatic intracerebral hemorrhage, unspecified; F03.90 Unspecified dementia, unspecified severity, without behavioral disturbance, psychotic disturbance, mood disturbance, and anxiety; I25.119 Atherosclerotic heart disease of native coronary artery with unspecified angina pectoris; I25.5 Ischemic cardiomyopathy; I35.0 Nonrheumatic aortic (valve) stenosis; I10 Essential (primary) hypertension; E78.5 Hyperlipidemia, unspecified; E11.9 Type 2 diabetes mellitus without complications; S81.812A Laceration without foreign body, left lower leg, initial encounter; X58.XXXA Exposure to other specified factors, initial encounter; Z95.1 Presence of aortocoronary bypass graft; Z95.5 Presence of coronary angioplasty implant and graft; Z95.810 Presence of automatic (implantable) cardiac defibrillator; Z79.4 Long term (current) use of insulin; Z79.82 Long term (current) use of aspirin; Z79.899 Other long term (current) drug therapy; Z87.891 Personal history of nicotine dependence

== ENCOUNTER → 2017-03-21 | Outpatient (CLI) | payer BC ==
[~2017-03-21] MED LIST changes: +ACET-1256 PO; +ANSS PR; -ASPI81TA21 PO; +BISA10SU54 RE; +CARV12.5 PO; +CIPR1TAB11 PO; +CLCUDL PO; +FLM4 PO; +LISI-789 PO; +LORA-741 PO; +MOMLX PO; +MULTTAB63 PO; +NUTR-397 PO; +NVLGI/PEN SQ; +POLY335019 PO; +SENN-65 PO; +SODIENE PR; -WARF5TAB90 PO
[2017-03-21 13:09] LABS: BLOOD UREA NITROGEN 15 mg/dl (7-18); BUN/CREATININE RATIO 12.3 (10-20); CALCIUM 8.2 mg/dl (8.5-10.1); CARBON DIOXIDE 29 mmol/L (21-32); CHLORIDE 110 mmol/L (98-107); GLUCOSE 181 mg/dl (70-99); POTASSIUM 4.1 mmol/L (3.5-5.1); SODIUM 141 mmol/L (136-145)
== END | disposition home or self-care (01) ==
LOC: C.LAB1850 11:16
PROVIDERS: ATTEND Physician Assistant
DX: I50.22 Chronic systolic (congestive) heart failure (principal)

== ENCOUNTER → 2017-03-26 | Outpatient (CLI) | payer BC ==
[2017-03-26 13:20] LABS: BLOOD UREA NITROGEN 16 mg/dl (7-18); BUN/CREATININE RATIO 13.3 (10-20); CALCIUM 8.3 mg/dl (8.5-10.1); CARBON DIOXIDE 29 mmol/L (21-32); CHLORIDE 107 mmol/L (98-107); GLUCOSE 100 mg/dl (70-99); POTASSIUM 3.7 mmol/L (3.5-5.1); SODIUM 141 mmol/L (136-145)
== END | disposition home or self-care (01) ==
LOC: C.LABWYN 13:10
PROVIDERS: ATTEND Physician Assistant
DX: Z79.899 Other long term (current) drug therapy (principal)

== ENCOUNTER → 2017-04-11 | Outpatient (CLI) | payer BC ==
[2017-04-11 16:11] LABS: BLOOD UREA NITROGEN 24 mg/dl (7-18); BUN/CREATININE RATIO 17.4 (10-20); CALCIUM 8.4 mg/dl (8.5-10.1); CARBON DIOXIDE 32 mmol/L (21-32); CHLORIDE 103 mmol/L (98-107); GLUCOSE 127 mg/dl (70-99); POTASSIUM 3.6 mmol/L (3.5-5.1); SODIUM 140 mmol/L (136-145)
== END | disposition home or self-care (01) ==
LOC: C.LAB1850 14:39
PROVIDERS: ATTEND Internal Medicine Cardiovascular Disease
DX: I35.0 Nonrheumatic aortic (valve) stenosis (principal); I48.92 Unspecified atrial flutter; I50.22 Chronic systolic (congestive) heart failure; I25.5 Ischemic cardiomyopathy

== ENCOUNTER 2017-05-05 13:58 | Emergency (ER) | payer BC ==
[~2017-05-05] VITALS: Ht 182.9 cm; Wt 64.0 kg
[~2017-05-05 13:58] MED LIST changes: -CARV12.5 PO; -CIPR1TAB11 PO; -LISI-789 PO; -LORA-741 PO; -MULTTAB63 PO; -NUTR-397 PO
[2017-05-05 14:08] VITALS: Ht 182.9 cm; Wt 64.0 kg
[2017-05-05] MEDS ORDERED: ACETAMINOPHEN 325 MG TAB PO STA (15:24)
--- NOTE | 2017-05-05 15:29 | EMERGENCY ROOM VISIT NOTE ---
History Report prepared by Julia: Caitlyn White Under the Supervision of: Dr. Joe Oliva M.D. First contact with patient: 15:16 Chief Complaint: FEVER Stated Complaint: WEAKNESS Nursing Triage Summary: pt arrives with , pt lives at [facility] and started with fever this morning , pt reports buning and pain with urination For about 1 week. pt has a urinary cath History of Present Illness The patient is a 86 year old male who presents to the Emergency Room with complaints of a constant fever beginning this morning. The patient arrived in the ED from [facility] with his . She reports that the fever started this morning. The patient has been complaining of dysuria for the past week. He does have a Hernandez catheter in place. cannot remember when it was placed. The patient reports a cough and some slight abdominal pain. He has been moving his bowels normally. He has not had any medications for his fever today. states that he has a history of dementia and is frequently disoriented. Source of History: patient, spouse/significant other Onset: this morning Position: head Quality: other (fever) Timing: constant Associated Symptoms: + cough, + abdominal pain, + urinary symptoms, No diarrhea Review of Systems All systems have been listed, reviewed, and are negative other than those previously mentioned. Please see Additional Medical History Sheet. Past Medical & Surgical Medical Problems: (1) Angina (2) Aortic valve stenosis (3) AORTOCORONARY BYPASS (4) Chronic ischemic heart disease (5) DIAB ALEIDA WO COMPL, TYPE II OR UNSPEC TYPE, NOT UNCNTRLD (6) Epistaxis (7) GI bleed (8) Hemorrhagic stroke (9) Hyperlipidemia (10) HYPERLIPIDEMIA NEC/NOS (11) Influenza (12) Ischemic cardiomyopathy (13) Percutaneous transluminal coronary angioplasty (14) Placement of stent in coronary artery (15) SHORTNESS OF BREATH Family History Omitted due to patient age Social History Smoking Status: Former Smoker Alcohol Use: none, other Drug Use: none Marital Status: Housing Status: lives with family, other Current/Historical Medications Scheduled Atorvastatin (Lipitor), 40 MG PO DAILY Bumetanide (Bumex), 1 MG PO BID Carvedilol (Coreg), 12.5 MG PO Q12 Ciprofloxacin Tab (Cipro), 250 MG PO BID Famotidine (Pepcid), 20 MG PO QAM Glimepiride (Glimepiride), 2 MG PO DAILY Insulin Aspart (Novolog Flexpen), 1 DOSE SQ QID Lisinopril (Zestril), 2.5 MG PO DAILY Lorazepam (Ativan), 0.5 MG PO DAILY Multiple Vitamins W/ Minerals (Therems M), 1 TAB PO QAM Nutritional Supplements (Og), 1 PKT PO DAILY Polyethylene Glycol 3350 (Miralax), 17 GM PO DAILY Ranolazine (Ranexa), 1,000 MG PO BID Senna/Docusate Sod (Senokot S), 1 TAB PO DAILY Tamsulosin HCl (Tamsulosin HCl), 0.4 MG PO QPM Scheduled PRN Acetaminophen (Tylenol), 500 MG PO Q4 PRN for Pain Docusate Sodium (Diocto), 10 ML PO BID PRN for Constipation Magnesium Hydroxide (Milk of Magnesia), 30 ML PO Q24H PRN for Constipation Allergies Coded Allergies: Sulfa Antibiotics (Unverified Allergy, Severe, ANAPHYLAXIS, 05/05/17) Physical Exam Vital Signs Date Time Temp Pulse Resp B/P (MAP) Pulse Ox O2 Delivery O2 Flow Rate FiO2 05/05/17 17:41 37.7 100 18 138/76 97 Room Air 05/05/17 14:08 38.2 101 20 138/83 91 Room Air Physical Exam GENERAL: Patient awake, alert, disoriented x3. Patient follows commands. Patient does not appear toxic. Patient is adequately hydrated and well- nourished. SKIN: No erythema, pallor, cyanosis or rash HEENT: Normal head, pupils equal, reactive to light and accommodation. Ears normal. Oral cavity and posterior pharynx appear normal. Neck: Without adenopathy, no neck vein distention. LUNGS: Clear to auscultation. No wheezes, no rales, no rhonchi. HEART: No murmurs. No gallops. No rubs CHEST: Well-healed midline sternotomy scar. ABDOMEN: No masses, no rebound, no hepatomegaly or splenomegaly. Patient has Hernandez catheter in place. EXTREMITIES: No signs of trauma. No pedal or pretibial edema. No calf or thigh tenderness. NEUROLOGIC: Cranial nerves II-XII within normal limits. No gross motor sensory function deficits. Medical Decision & Procedures ER Provider Diagnostic Interpretation: Radiology results as stated below per my review and radiologist interpretation: CHEST ONE VIEW PORTABLE CLINICAL HISTORY: 86 years-old Male presenting with fever, weakness. TECHNIQUE: Portable upright AP view of the chest was obtained. COMPARISON: 02/04/2017. FINDINGS: Left-sided implanted cardiac defibrillator with leads to the coronary sinus, right atrium, and right ventricular apex. Median sternotomy wires and mediastinal surgical clips again noted. Atherosclerosis of aortic arch. Cardiac silhouette enlarged, unchanged. Mildly low lung volumes with hypoventilatory changes. No focal infiltrate. No large effusion or pneumothorax. Degenerative changes of the right glenohumeral joint with large loose bodies. Upper abdomen normal. IMPRESSION: 1. Mildly low lung volumes with hypoventilatory changes. No focal infiltrate. 2. Cardiomegaly. Electronically signed by: Jim Campos M.D. 05/05/2017 5:02 PM Dictated Date/Time: 05/05/2017 5:00 PM Laboratory Results 05/05/17 15:24 Red Blood Count 3.49, Mean Corpuscular Volume 90.3, Mean Corpuscular Hemoglobin 29.8, Mean Corpuscular Hemoglobin Concent 33.0, Mean Platelet Volume 10.7, Neutrophils (%) (Auto) 79.1, Lymphocytes (%) (Auto) 12.3, Monocytes (%) (Auto) 7.6, Eosinophils (%) (Auto) 0.9, Basophils (%) (Auto) 0.0, Neutrophils # (Auto) 6.76, Lymphocytes # (Auto) 1.05, Monocytes # (Auto) 0.65, Eosinophils # (Auto) 0.08, Basophils # (Auto) 0.00 05/05/17 15:24 Test 05/05/17 15:24 05/05/17 16:58 05/05/17 17:35 White Blood Count 8.55 K/uL (4.8-10.8) Red Blood Count 3.49 M/uL (4.7-6.1) Hemoglobin 10.4 g/dL (14.0-18.0) Hematocrit 31.5 % (42-52) Mean Corpuscular Volume 90.3 fL (80-100) Mean Corpuscular Hemoglobin 29.8 pg (25-34) Mean Corpuscular Hemoglobin Concent 33.0 g/dl (32-36) Platelet Count 135 K/uL (130-400) Mean Platelet Volume 10.7 fL (7.4-10.4) Neutrophils (%) (Auto) 79.1 % Lymphocytes (%) (Auto) 12.3 % Monocytes (%) (Auto) 7.6 % Eosinophils (%) (Auto) 0.9 % Basophils (%) (Auto) 0.0 % Neutrophils # (Auto) 6.76 K/uL (1.4-6.5) Lymphocytes # (Auto) 1.05 K/uL (1.2-3.4) Monocytes # (Auto) 0.65 K/uL (0.11-0.59) Eosinophils # (Auto) 0.08 K/uL (0-0.5) Basophils # (Auto) 0.00 K/uL (0-0.2) RDW Standard Deviation 49.2 fL (36.4-46.3) RDW Coefficient of Variation 15.0 % (11.5-14.5) Immature Granulocyte % (Auto) 0.1 % Immature Granulocyte # (Auto) 0.01 K/uL (0.00-0.02) Ovalocytes 1+ Anion Gap 5.0 mmol/L (3-11) Est Creatinine Clear Calc Drug Dose 30.8 ml/min Estimated GFR () 47.5 Estimated GFR (Non- 41.0 BUN/Creatinine Ratio 17.7 (10-20) Calcium Level 8.9 mg/dl (8.5-10.1) Total Bilirubin 1.1 mg/dl (0.2-1) Aspartate Amino Transf (AST/SGOT) 40 U/L (15-37) Alanine Aminotransferase (ALT/SGPT) 25 U/L (12-78) Alkaline Phosphatase 137 U/L (45-117) Troponin I < 0.015 ng/ml (0-0.045) Total Protein 7.5 gm/dl (6.4-8.2) Albumin 3.4 gm/dl (3.4-5.0) Globulin 4.1 gm/dl (2.5-4.0) Albumin/Globulin Ratio 0.8 (0.9-2) Chemistry Specimen Hemolysis Lactic Acid Level 0.8 mmol/L (0.4-2.0) Urine Color DK YELLOW Urine Appearance CLOUDY (CLEAR) Urine pH 7.0 (4.5-7.5) Urine Specific Hugo 1.015 (1.000-1.030) Urine Protein 1+ (NEG) Urine Glucose (UA) NEG (NEG) Urine Ketones NEG (NEG) Urine Occult Blood 3+ (NEG) Urine Nitrite POS (NEG) Urine Bilirubin NEG (NEG) Urine Urobilinogen NEG (NEG) Urine Leukocyte Esterase LARGE (NEG) Urine WBC (Auto) >30 /hpf (0-5) Urine RBC (Auto) >30 /hpf (0-4) Urine Hyaline Casts (Auto) 1-5 /lpf (0-5) Urine Epithelial Cells (Auto) 0-5 /lpf (0-5) Urine Bacteria (Auto) NEG (NEG) Laboratory results as stated above per my review. Medications Administered Medications (Trade) Dose Ordered Sig/Sary Route Start Time Stop Time Status Last Admin Dose Admin Acetaminophen (Tylenol Supp) 975 mg NOW STAT WA 05/05/17 16:31 05/05/17 16:32 DC 05/05/17 16:31 975 MG Ondansetron HCl (Zofran Odt) 4 mg ONE ONCE PO 05/05/17 16:45 05/05/17 16:46 DC 05/05/17 16:56 4 MG ECG Indication: other Rate (beats per minute): 97 Rhythm: other (paced) Findings: no acute ischemic change, no ectopy Comparison ECG Date: 02/04/17 Change: no significant change ED Course 1517: Past medical records reviewed. The patient was evaluated in room D8. A complete history and physical examination was performed. 1631: Tylenol 975 mg WA. 1645: Zofran 4 mg PO. 1739: Upon reevaluation the patient is resting comfortably. I spoke with his . A new catheter was placed and we are waiting for a urinalysis. I answered all of her questions. 1805: Cipro Tab 500 mg PO. 1807: I discussed the results with the patient's . She expressed full understanding and agreement. I answered all of her questions. The patient will be discharged home. Medical Decision Nurses notes reviewed. Medical history sheet reviewed. Differential diagnosis includes but is not limited to: fever, URI, UTI, viral infection, sepsis. The patient is here with low-grade fever. History from the patient is unreliable due to his underlying dementia. Multiple labs, EKG, urinalysis were obtained. Please see above. The patient's Hernandez catheter was blocked and despite irrigation it could not be used. Therefore a new catheter was placed. The patient does appear to have a urinary tract infection. He does not appear to have a infiltrate on chest x-ray. The patient will be started on ciprofloxacin. He is to be followed by his family physician within the next 10 days. Medication Reconcilliation Current Medication List: was personally reviewed by me Blood Pressure Screening Patient's blood pressure: Normal blood pressure Impression Primary Impression: Urinary tract infection Scribe Attestation The scribe's documentation has been prepared under my direction and personally reviewed by me in its entirety. I confirm that the note above accurately reflects all work, treatment, procedures, and medical decision making performed by me. Departure Information Dispostion Home / Self-Care Prescriptions Ciprofloxacin Tab (Cipro) 250 Mg Tab 250 MG PO BID, #19 TAB Prov: Joe Oliva M.D. 05/05/17 Referrals Josiah Gustafson III, M.D. (PCP) Patient Instructions My [facility] Additional Instructions 1 ciprofloxacin twice a day for 10 days. Continue all of your current medications as prescribed. 650 mg of Tylenol every 4-6 hours as needed for fever.
[2017-05-05 15:45] LABS: HEMATOCRIT 31.5 % (42-52); MEAN CELL VOLUME 90.3 fL (80-100); MEAN CORPUSCULAR HEMOGLOBIN 29.8 pg (25-34); MEAN PLATELET VOLUME 10.7 fL (7.4-10.4); PLATELET COUNT 135 K/uL (130-400); RED BLOOD COUNT 3.49 M/uL (4.7-6.1); WHITE BLOOD COUNT 8.55 K/uL (4.8-10.8)
[2017-05-05 16:07] LABS: ALB/GLOB RATIO 0.8 (0.9-2); ALKALINE PHOSPHATASE 137 U/L (45-117); ALT/SGPT 25 U/L (12-78); AST/SGOT 40 U/L (15-37); BLOOD UREA NITROGEN 27 mg/dl (7-18); BUN/CREATININE RATIO 17.7 (10-20); CALCIUM 8.9 mg/dl (8.5-10.1); CARBON DIOXIDE 31 mmol/L (21-32); CHLORIDE 105 mmol/L (98-107); GLUCOSE 98 mg/dl (70-99); POTASSIUM 4.1 mmol/L (3.5-5.1); SODIUM 141 mmol/L (136-145)
[2017-05-05 16:18] LABS: COMPLETE YES; EOS % 0.9 %; IG% 0.1 %; LYMPH % 12.3 %; LYMPH ABS # 1.05 K/uL (1.2-3.4); MONO % 7.6 %; NEUT % 79.1 %; OVALOCYTES 1+
[2017-05-05] MEDS ORDERED: ACETAMINOPHEN 325 MG SUPP PR STA (16:31)
[2017-05-05] MEDS ORDERED: MULTTAB63 PO (16:42)
[2017-05-05] MEDS ORDERED: ACETAMINOPHEN 650 MG SUPP PR ONE (16:42)
[2017-05-05] MEDS ORDERED: CARV12.5 PO (16:42)
[2017-05-05] MEDS ORDERED: NUTR-397 PO (16:42)
[2017-05-05] MEDS ORDERED: LORA-741 PO (16:42)
[2017-05-05] MEDS ORDERED: LISI-789 PO (16:42)
[2017-05-05] MEDS ORDERED: ONDANSETRON 4MG OD TAB PO ONE (16:45)
--- NOTE | 2017-05-05 17:03 | DIAGNOSTIC IMAGING REPORT ---
CHEST ONE VIEW PORTABLE CLINICAL HISTORY: 86 years-old Male presenting with fever, weakness. TECHNIQUE: Portable upright AP view of the chest was obtained. COMPARISON: 02/04/2017. FINDINGS: Left-sided implanted cardiac defibrillator with leads to the coronary sinus, right atrium, and right ventricular apex. Median sternotomy wires and mediastinal surgical clips again noted. Atherosclerosis of aortic arch. Cardiac silhouette enlarged, unchanged. Mildly low lung volumes with hypoventilatory changes. No focal infiltrate. No large effusion or pneumothorax. Degenerative changes of the right glenohumeral joint with large loose bodies. Upper abdomen normal. IMPRESSION: 1. Mildly low lung volumes with hypoventilatory changes. No focal infiltrate. 2. Cardiomegaly. Electronically signed by: Jim Campos M.D. 05/05/2017 5:02 PM Dictated Date/Time: 05/05/2017 5:00 PM
[2017-05-05 17:41] VITALS: TEMP 37.7
[2017-05-05 17:50] LABS: URINE APPEARANCE CLOUDY (CLEAR); URINE BILIRUBIN NEG (NEG); URINE COLOR DK YELLOW; URINE EPITHELIAL CELL AUTO 0-5 /lpf (0-5); URINE NITRITE POS (NEG); URINE SPECIFIC GRAVITY 1.015 (1.000-1.030); UROBILINOGEN NEG (NEG); ZZURINE CULT IF INDIC CATH YES
[2017-05-05 17:53] LABS: MANUAL MICROSCOPIC REQUIRED? NO; REVIEW REQ? NO
[2017-05-05] MEDS ORDERED: CIPR1TAB11 PO (18:04)
[2017-05-05] MEDS ORDERED: CIPROFLOXACIN 500 MG TAB PO STA (18:05)
[2017-05-05 18:43] VITALS: BP 120/69; PULSE 102; O2SAT 93
--- NOTE | 2017-05-08 13:15 | Pharmacy Progress Note ---
ED Pharmacist Culture FollowUp Date of Service: May 08, 2017. Patient with a positive urine culture result for MSSA and acinetobacter. Patient was discharged on ciprofloxacin 250mg BID X 10 days which will cover the acinetobacter. Talked to Meagan at the office of Dr. Gustafson, the patient's PCP. Explained the culture result and provided a recommendation for additional abx of doxycycline based on susceptibility results and faxed the results to the confirmed number of [phone]. I also confirmed that Dr. Gustafson would assume follow up and prescribe any further antibiotics if necessary. I did request that I receive a call if there were any issues to ensure the patient received appropriate follow up care.
== END 2017-05-05 18:44 | disposition home or self-care (01) ==
LOC: C.EDB 14:01
DX: N39.0 Urinary tract infection, site not specified (principal)

== ENCOUNTER → 2017-05-07 | Outpatient (CLI) | payer BC ==
[~2017-05-07] MED LIST changes: -ANSS PR; -BISA10SU54 RE; +CARV12.5 PO; -CARV25TA2 PO; +CIPR1TAB11 PO; +LISI-789 PO; -LISI2.5T5 PO; +LORA-741 PO; -METF500T PO; -MULTTAB58 PO; +MULTTAB63 PO; +NUTR-397 PO; -SITA100T3 PO; -SODIENE PR
[2017-05-07 12:49] LABS: HEMATOCRIT 29.9 % (42-52); MEAN CELL VOLUME 91.7 fL (80-100); MEAN CORPUSCULAR HEMOGLOBIN 30.1 pg (25-34); MEAN CORPUSCULAR HGB CONC 32.8 g/dl (32-36); PLATELET COUNT 139 K/uL (130-400); RED BLOOD COUNT 3.26 M/uL (4.7-6.1); WHITE BLOOD COUNT 7.16 K/uL (4.8-10.8)
[2017-05-07 13:47] LABS: ALT/SGPT 22 U/L (12-78); AST/SGOT 34 U/L (15-37); BLOOD UREA NITROGEN 32 mg/dl (7-18); BUN/CREATININE RATIO 19.7 (10-20); CALCIUM 8.3 mg/dl (8.5-10.1); CARBON DIOXIDE 28 mmol/L (21-32); CHLORIDE 105 mmol/L (98-107); CHOLESTEROL 100 mg/dl (0-200); GLUCOSE 65 mg/dl (70-99); POTASSIUM 3.5 mmol/L (3.5-5.1); SODIUM 139 mmol/L (136-145)
[2017-05-07 13:51] LABS: HDL CHOLESTEROL 51 mg/dl; LDL CHOLESTEROL CALCULATED 37 mg/dl; TRIGLYCERIDES 61 mg/dl (0-150); VERY LOW DENSITY LIPOPROT CALC 12 mg/dl
== END | disposition home or self-care (01) ==
LOC: C.LABWYN 13:25
PROVIDERS: ATTEND Internal Medicine Cardiovascular Disease
DX: I35.0 Nonrheumatic aortic (valve) stenosis (principal); I25.5 Ischemic cardiomyopathy; I50.22 Chronic systolic (congestive) heart failure; Z95.2 Presence of prosthetic heart valve; I25.119 Atherosclerotic heart disease of native coronary artery with unspecified angina pectoris

== ENCOUNTER → 2017-05-14 | Outpatient (CLI) | payer BC ==
[2017-05-14 13:29] LABS: BLOOD UREA NITROGEN 23 mg/dl (7-18); BUN/CREATININE RATIO 16.9 (10-20); CALCIUM 8.8 mg/dl (8.5-10.1); CARBON DIOXIDE 28 mmol/L (21-32); CHLORIDE 103 mmol/L (98-107); CREATININE 1.36 mg/dl (0.60-1.40); GLUCOSE 86 mg/dl (70-99); POTASSIUM 3.4 mmol/L (3.5-5.1); SODIUM 140 mmol/L (136-145)
== END | disposition home or self-care (01) ==
LOC: C.LABWYN 12:53
PROVIDERS: ATTEND Physician Assistant
DX: I50.22 Chronic systolic (congestive) heart failure (principal)

== ENCOUNTER → 2017-05-21 | Outpatient (CLI) | payer BC ==
[2017-05-21 09:09] LABS: BLOOD UREA NITROGEN 23 mg/dl (7-18); BUN/CREATININE RATIO 16.7 (10-20); CALCIUM 8.2 mg/dl (8.5-10.1); CARBON DIOXIDE 27 mmol/L (21-32); CHLORIDE 105 mmol/L (98-107); CREATININE 1.37 mg/dl (0.60-1.40); GLUCOSE 84 mg/dl (70-99); POTASSIUM 3.3 mmol/L (3.5-5.1); SODIUM 140 mmol/L (136-145)
== END | disposition home or self-care (01) ==
LOC: C.LABWYN 08:50
PROVIDERS: ATTEND Physician Assistant
DX: I25.10 Atherosclerotic heart disease of native coronary artery without angina pectoris (principal)

== ENCOUNTER → 2017-07-09 | Outpatient (CLI) | payer BC ==
[2017-07-09 12:37] LABS: BASO % 0.4 %; BASO ABS # 0.02 K/uL (0-0.2); COMPLETE YES; EOS % 5.2 %; HEMATOCRIT 30.6 % (42-52); IG% 0.2 %; LYMPH % 30.4 %; LYMPH ABS # 1.65 K/uL (1.2-3.4); MEAN CORPUSCULAR HEMOGLOBIN 29.4 pg (25-34); MEAN CORPUSCULAR HGB CONC 32.7 g/dl (32-36); MEAN PLATELET VOLUME 10.9 fL (7.4-10.4); MONO % 10.3 %; NEUT % 53.5 %; PLATELET COUNT 127 K/uL (130-400); WHITE BLOOD COUNT 5.42 K/uL (4.8-10.8)
[2017-07-09 13:00] LABS: BLOOD UREA NITROGEN 25 mg/dl (7-18); CALCIUM 8.4 mg/dl (8.5-10.1); CARBON DIOXIDE 29 mmol/L (21-32); CHLORIDE 105 mmol/L (98-107); GLUCOSE 74 mg/dl (70-99); POTASSIUM 3.6 mmol/L (3.5-5.1); SODIUM 141 mmol/L (136-145)
== END | disposition home or self-care (01) ==
LOC: C.LABWYN 09:27
PROVIDERS: ATTEND Physician Assistant
DX: N18.9 Chronic kidney disease, unspecified (principal); E87.70 Fluid overload, unspecified

== ENCOUNTER → 2017-08-06 | Outpatient (CLI) | payer BC ==
[2017-08-06 13:30] LABS: BLOOD UREA NITROGEN 27 mg/dl (7-18); CALCIUM 8.4 mg/dl (8.5-10.1); CARBON DIOXIDE 30 mmol/L (21-32); CREATININE 1.39 mg/dl (0.60-1.40); GLUCOSE 72 mg/dl (70-99); POTASSIUM 3.4 mmol/L (3.5-5.1); SODIUM 138 mmol/L (136-145)
== END | disposition home or self-care (01) ==
LOC: C.LABWYN 10:32
PROVIDERS: ATTEND Physician Assistant
DX: I50.22 Chronic systolic (congestive) heart failure (principal); N18.9 Chronic kidney disease, unspecified

== ENCOUNTER → 2017-09-10 | Outpatient (CLI) | payer BC ==
[2017-09-10 13:04] LABS: BLOOD UREA NITROGEN 31 mg/dl (7-18); CARBON DIOXIDE 27 mmol/L (21-32); CREATININE 1.58 mg/dl (0.60-1.40); GLUCOSE 82 mg/dl (70-99); POTASSIUM 3.7 mmol/L (3.5-5.1); SODIUM 137 mmol/L (136-145)
[2017-09-10 13:19] LABS: HEMOGLOBIN A1C 5.9 % (4.5-5.6)
== END | disposition home or self-care (01) ==
LOC: C.LABWYN 14:41
PROVIDERS: ATTEND Physician Assistant
DX: I50.22 Chronic systolic (congestive) heart failure (principal); N18.3 Chronic kidney disease, stage 3 (moderate); E11.9 Type 2 diabetes mellitus without complications

== ENCOUNTER → 2017-09-19 | Outpatient (CLI) | payer BC ==
[2017-09-19 13:47] LABS: BLOOD UREA NITROGEN 39 mg/dl (7-18); CALCIUM 8.4 mg/dl (8.5-10.1); CARBON DIOXIDE 30 mmol/L (21-32); CREATININE 1.45 mg/dl (0.60-1.40); GLUCOSE 82 mg/dl (70-99); POTASSIUM 3.6 mmol/L (3.5-5.1); SODIUM 136 mmol/L (136-145)
== END | disposition home or self-care (01) ==
LOC: C.LABWYN 12:27
PROVIDERS: ATTEND Internal Medicine Cardiovascular Disease
DX: I25.10 Atherosclerotic heart disease of native coronary artery without angina pectoris (principal)

== ENCOUNTER → 2017-10-08 | Outpatient (CLI) | payer BC ==
[2017-10-08 13:39] LABS: BLOOD UREA NITROGEN 40 mg/dl (7-18); CALCIUM 8.7 mg/dl (8.5-10.1); CARBON DIOXIDE 29 mmol/L (21-32); CREATININE 1.67 mg/dl (0.60-1.40); GLUCOSE 74 mg/dl (70-99); POTASSIUM 3.8 mmol/L (3.5-5.1); SODIUM 135 mmol/L (136-145)
== END | disposition home or self-care (01) ==
LOC: C.LABWYN 12:34
PROVIDERS: ATTEND Physician Assistant
DX: N18.9 Chronic kidney disease, unspecified (principal); E87.70 Fluid overload, unspecified; I50.22 Chronic systolic (congestive) heart failure

== ENCOUNTER → 2017-11-07 | Outpatient (CLI) | payer BC ==
[~2017-11-07] MED LIST changes: -CIPR1TAB11 PO
[2017-11-07 14:00] LABS: BLOOD UREA NITROGEN 34 mg/dl (7-18); CALCIUM 8.6 mg/dl (8.5-10.1); CARBON DIOXIDE 28 mmol/L (21-32); CREATININE 1.66 mg/dl (0.60-1.40); GLUCOSE 69 mg/dl (70-99); POTASSIUM 3.6 mmol/L (3.5-5.1); SODIUM 138 mmol/L (136-145)
== END | disposition home or self-care (01) ==
LOC: C.LABWYN 13:06
PROVIDERS: ATTEND Physician Assistant
DX: N18.9 Chronic kidney disease, unspecified (principal); E87.70 Fluid overload, unspecified

== ENCOUNTER → 2017-12-05 | Outpatient (CLI) | payer BC ==
[2017-12-05 12:28] LABS: BASO % 0.2 %; BASO ABS # 0.01 K/uL (0-0.2); EOS % 3.6 %; EOS ABS # 0.21 K/uL (0-0.5); HEMATOCRIT 32.4 % (42-52); HEMOGLOBIN 10.6 g/dL (14.0-18.0); IG# 0.01 K/uL (0.00-0.02); LYMPH % 27.6 %; LYMPH ABS # 1.61 K/uL (1.2-3.4); MEAN CELL VOLUME 90.8 fL (80-100); MEAN CORPUSCULAR HEMOGLOBIN 29.7 pg (25-34); MEAN CORPUSCULAR HGB CONC 32.7 g/dl (32-36); MEAN PLATELET VOLUME 10.3 fL (7.4-10.4); MONO % 11.5 %; MONO ABS # 0.67 K/uL (0.11-0.59); NEUT % 56.9 %; NEUT ABS # 3.33 K/uL (1.4-6.5); PLATELET COUNT 115 K/uL (130-400); RED CELL DISTRIBUTION WIDTH CV 14.4 % (11.5-14.5); RED CELL DISTRIBUTION WIDTH SD 47.9 fL (36.4-46.3); WHITE BLOOD COUNT 5.84 K/uL (4.8-10.8)
[2017-12-05 12:51] LABS: BLOOD UREA NITROGEN 34 mg/dl (7-18); CALCIUM 8.3 mg/dl (8.5-10.1); CARBON DIOXIDE 30 mmol/L (21-32); GLUCOSE 79 mg/dl (70-99); POTASSIUM 4.1 mmol/L (3.5-5.1); SODIUM 138 mmol/L (136-145)
== END | disposition home or self-care (01) ==
LOC: C.LABWYN 10:17
PROVIDERS: ATTEND Physician Assistant
DX: N18.9 Chronic kidney disease, unspecified (principal); E87.70 Fluid overload, unspecified

== ENCOUNTER 2017-12-21 14:12 | Emergency (ER) | payer BC ==
[~2017-12-21] VITALS: Ht 182.9 cm; Wt 95.0 kg
[2017-12-21 14:25] VITALS: TEMP 36.6; Ht 182.9 cm; Wt 95.0 kg
[2017-12-21] MEDS ORDERED: ONDANSETRON INJ 2 MG/ML 2 ML VIAL IV STA (14:29)
[2017-12-21] MEDS ORDERED: SODIUM CHLORIDE 0.9% 500ML 500 ML IV STA ×2 (14:29→17:23)
--- NOTE | 2017-12-21 14:36 | EMERGENCY ROOM VISIT NOTE ---
History Report prepared by Julia: Dariela Power Under the Supervision of: Dr. Godwin Vegas M.D. First contact with patient: 14:18 Chief Complaint: ILLNESS Stated Complaint: ILLNESS, DIARRHEA History of Present Illness The patient is a 87 year old white male with a past medical history of a CVA, GI bleed, and pacemaker placement who presents to the ED with a cc of diarrhea beginning this afternoon. Positive nausea, vomiting, cough, and fevers. Negative chills and abdominal pain currently. He denies a history of an appendectomy. His states that they live at [facility]. Source of History: patient, spouse/significant other Onset: this afternoon Position: other (generalized) Quality: other (diarrhea) Associated Symptoms: + fevers, + cough, + nausea, + vomiting, No chills, No abdominal pain Review of Systems See HPI for pertinent positives and negatives. A total of ten systems were reviewed and were otherwise negative. Past Medical & Surgical Medical Problems: (1) Angina (2) Aortic valve stenosis (3) AORTOCORONARY BYPASS (4) Chronic ischemic heart disease (5) DIAB ALEIDA WO COMPL, TYPE II OR UNSPEC TYPE, NOT UNCNTRLD (6) Epistaxis (7) GI bleed (8) Hemorrhagic stroke (9) Hyperlipidemia (10) HYPERLIPIDEMIA NEC/NOS (11) Influenza (12) Ischemic cardiomyopathy (13) Pacemaker (14) Percutaneous transluminal coronary angioplasty (15) Placement of stent in coronary artery (16) SHORTNESS OF BREATH Family History Cancer Diabetes mellitus Hypertension Kidney disease Social History Smoking Status: Former Smoker Alcohol Use: none Drug Use: none Marital Status: Housing Status: other ([facility]) Occupation Status: retired Current/Historical Medications Scheduled Atorvastatin (Lipitor), 40 MG PO DAILY Bumetanide (Bumex), 2 MG PO BID Carvedilol (Coreg), 12.5 MG PO Q12 Docusate Sodium (Colace), 100 MG PO BID Famotidine (Pepcid), 20 MG PO QAM Glimepiride (Glimepiride), 2 MG PO DAILY Insulin Aspart (Novolog Flexpen), 1 DOSE SQ QID Lisinopril (Zestril), 2.5 MG PO DAILY Multiple Vitamins W/ Minerals (Therems M), 1 TAB PO QAM Nutritional Supplements (Og), 1 PKT PO DAILY Polyethylene Glycol 3350 (Miralax), 17 GM PO DAILY Potassium Chloride (Micro-K Ext Rel), 10 MEQ PO DAILY Ranolazine (Ranexa), 1,000 MG PO BID Tamsulosin HCl (Tamsulosin HCl), 0.4 MG PO QPM Scheduled PRN Acetaminophen (Tylenol), 500 MG PO Q4 PRN for Pain Bumetanide (Bumex), 2 MG PO DAILY PRN for PRN Magnesium Hydroxide (Milk of Magnesia), 30 ML PO Q24H PRN for Constipation Senna/Docusate Sod (Senokot S), 1 TAB PO DAILY PRN for Constipation Allergies Coded Allergies: Sulfa Antibiotics (Unverified Allergy, Severe, ANAPHYLAXIS, 12/21/17) Physical Exam Vital Signs Date Time Temp Pulse Resp B/P (MAP) Pulse Ox O2 Delivery O2 Flow Rate FiO2 12/21/17 17:40 104 20 121/77 100 Room Air 12/21/17 16:24 90 18 129/78 100 Room Air 12/21/17 15:46 91 12/21/17 14:25 36.6 91 20 120/71 97 Room Air Physical Exam GENERAL: Awake, alert, well-appearing, NAD. Device in left chest. HENT: Normocephalic, atraumatic. EYES: Normal conjunctiva. Sclera non-icteric. PERRL. No anisocoria. NECK: Supple. No nuchal rigidity. FROM. RESPIRATORY: CTAB, no rhonchi, wheezing, crackles CARDIAC: RRR, no MRG ABDOMEN: Soft, right upper quadrant and suprapubic discomfort, negative Obturator's sign, negaitve Psoas sign, ND, BS+ MSK: No chest wall TTP, 3-4+ bilateral lower extremity edema right greater than left NEURO: GCS 15, CN 2-12 intact, moves all 4s on command SKIN: No rash or jaundice noted. Evidence of chronic venous stasis bilateral lower extremities distal to knee. Medical Decision & Procedures ER Provider Diagnostic Interpretation: Radiology results as stated below per my review and radiologist interpretation: CHEST ONE VIEW PORTABLE CLINICAL HISTORY: Cough. COMPARISON STUDY: Chest radiograph May 05, 2017. FINDINGS: Severe degenerative changes of the right glenohumeral joint are noted. A left subclavian biventricular pacer/AICD, median sternotomy wires and prosthetic aortic valve are noted. There is moderate cardiomegaly without evidence for pulmonary edema. Mild elevation of the right hemidiaphragm is noted. There is no consolidation. Appearance of the chest is similar to previous exam. IMPRESSION: No acute cardiopulmonary findings. Electronically signed by: Anshul Redding M.D. 12/21/2017 3:14 PM Dictated Date/Time: 12/21/2017 3:[address] OF THE ABDOMEN AND PELVIS WITHOUT CONTRAST CLINICAL HISTORY: Acute abdominal pain and nausea. COMPARISON STUDY: KUB February 04, 2017. TECHNIQUE: Axial images of the abdomen and pelvis were obtained without IV contrast. Images were reviewed in the axial, sagittal, and coronal planes. A dose lowering technique was utilized adhering to the principles of ALARA. FINDINGS: Visualized portions of the lower chest partially visualize pacer leads and a prosthetic aortic valve. There is moderate cardiomegaly. No pneumatosis, free air or portal venous gas is present. There is a small calcified gallstone within the gallbladder without evidence for acute cholecystitis. Evaluation of the abdomen and pelvis is suboptimal on this unenhanced exam. There is nodularity of the liver surface. Sensitivity for detection of hepatic lesions is diminished on this unenhanced exam but none are identified. The spleen, adrenal glands, kidneys and pancreas are unremarkable. There is slight dilatation of both ureters which may be related to moderate bladder dilatation. Bladder wall is irregular and thickened. There is mild adjacent infiltration. There is no evidence for a bowel obstruction. There is colonic diverticulosis without evidence for acute diverticulitis. There is no evidence for acute appendicitis. Small and large bowel is mildly fluid-filled. Prominent bilateral inguinal lymph nodes are likely benign. There are no suspicious osseous lesions. There is mild dilatation of both common iliac arteries. IMPRESSION: 1. No bowel obstruction. Mildly fluid-filled small and large bowel may reflect an enterocolitis. 2. Colonic diverticulosis without evidence for acute diverticulitis. 3. Irregular bladder wall with mild adjacent infiltration. This suggests chronic bladder outlet obstruction however could be correlated with urinalysis to exclude cystitis. 4. Suspected cirrhosis. 5. Cholelithiasis. No evidence for acute cholecystitis. Electronically signed by: Anshul Redding M.D. 12/21/2017 4:54 PM Dictated Date/Time: 12/21/2017 4:46 PM Laboratory Results 12/21/17 15:12 Red Blood Count 3.94, Mean Corpuscular Volume 90.6, Mean Corpuscular Hemoglobin 31.0, Mean Corpuscular Hemoglobin Concent 34.2, Mean Platelet Volume 10.2, Neutrophils (%) (Auto) 86.3, Lymphocytes (%) (Auto) 5.4, Monocytes (%) (Auto) 5.9, Eosinophils (%) (Auto) 2.1, Basophils (%) (Auto) 0.1, Neutrophils # (Auto) 7.50, Lymphocytes # (Auto) 0.47, Monocytes # (Auto) 0.51, Eosinophils # (Auto) 0.18, Basophils # (Auto) 0.01 12/21/17 15:12 Test 12/21/17 12:42 12/21/17 15:12 12/21/17 15:18 Urine Color DK YELLOW Urine Appearance TURBID (CLEAR) Urine pH 6.5 (4.5-7.5) Urine Specific [place] 1.017 (1.000-1.030) Urine Protein 2+ (NEG) Urine Glucose (UA) NEG (NEG) Urine Ketones NEG (NEG) Urine Occult Blood 2+ (NEG) Urine Nitrite NEG (NEG) Urine Bilirubin NEG (NEG) Urine Urobilinogen NEG (NEG) Urine Leukocyte Esterase LARGE (NEG) Urine WBC (Auto) >30 /hpf (0-5) Urine RBC (Auto) 0-4 /hpf (0-4) Urine Hyaline Casts (Auto) 0 /lpf (0-5) Urine Epithelial Cells (Auto) >30 /lpf (0-5) Urine Bacteria (Auto) NEG (NEG) Urine Pathogenic Casts /lpf (0) Urine Yeast (Auto) (NONE PRSENT) White Blood Count 8.69 K/uL (4.8-10.8) Red Blood Count 3.94 M/uL (4.7-6.1) Hemoglobin 12.2 g/dL (14.0-18.0) Hematocrit 35.7 % (42-52) Mean Corpuscular Volume 90.6 fL (80-100) Mean Corpuscular Hemoglobin 31.0 pg (25-34) Mean Corpuscular Hemoglobin Concent 34.2 g/dl (32-36) Platelet Count 124 K/uL (130-400) Mean Platelet Volume 10.2 fL (7.4-10.4) Neutrophils (%) (Auto) 86.3 % Lymphocytes (%) (Auto) 5.4 % Monocytes (%) (Auto) 5.9 % Eosinophils (%) (Auto) 2.1 % Basophils (%) (Auto) 0.1 % Neutrophils # (Auto) 7.50 K/uL (1.4-6.5) Lymphocytes # (Auto) 0.47 K/uL (1.2-3.4) Monocytes # (Auto) 0.51 K/uL (0.11-0.59) Eosinophils # (Auto) 0.18 K/uL (0-0.5) Basophils # (Auto) 0.01 K/uL (0-0.2) RDW Standard Deviation 47.6 fL (36.4-46.3) RDW Coefficient of Variation 14.2 % (11.5-14.5) Immature Granulocyte % (Auto) 0.2 % Immature Granulocyte # (Auto) 0.02 K/uL (0.00-0.02) Est Creatinine Clear Calc Drug Dose 31.4 ml/min Estimated GFR () 35.2 Estimated GFR (Non- 30.4 BUN/Creatinine Ratio 21.1 (10-20) Calcium Level 9.0 mg/dl (8.5-10.1) Magnesium Level 2.1 mg/dl (1.8-2.4) Total Bilirubin 1.5 mg/dl (0.2-1) Direct Bilirubin mg/dl (0-0.2) Aspartate Amino Transf (AST/SGOT) 35 U/L (15-37) Alanine Aminotransferase (ALT/SGPT) 26 U/L (12-78) Alkaline Phosphatase 124 U/L (45-117) Total Protein 8.0 gm/dl (6.4-8.2) Albumin 3.8 gm/dl (3.4-5.0) Lipase 124 U/L (73-393) Chemistry Specimen Hemolysis Bedside Hemoglobin 12.2 g/dl (14.0-18.0) Bedside Hematocrit 36 % (42-52) Bedside Sodium 136 mEq/L (135-144) Bedside Potassium 5.3 mEq/L (3.3-5.0) Bedside Chloride 98 mEq/L (101-112) Bedside Total CO2 28 mEq/l (24-31) Anion Gap 16.0 mmol/L (16-25) Bedside Blood Urea Nitrogen 51 mg/dl (7-18) Bedside Creatinine 1.7 mg/dl (0.6-1.3) Bedside Glucose (other) 112 mg/dl (70-99) Bedside Ionized Calcium (Cesia) 1.08 mmol/l (1.12-1.32) Laboratory results reviewed by me Medications Administered Medications (Trade) Dose Ordered Sig/Sary Route Start Time Stop Time Status Last Admin Dose Admin Ondansetron HCl (Zofran Inj) 4 mg NOW STAT IV 12/21/17 14:29 12/21/17 14:32 DC 12/21/17 15:33 4 MG Sodium Chloride 500 ml @ 500 mls/hr Q1H STAT IV 12/21/17 14:29 12/21/17 15:28 DC 12/21/17 15:21 500 MLS/HR Sodium Chloride 500 ml @ 999 mls/hr Q31M STAT IV 12/21/17 17:23 12/21/17 17:53 DC 12/21/17 17:37 999 MLS/HR ED Course 1422: The patient was evaluated in room A3. A complete history and physical exam was performed. 1707: I reevaluated the patient and he is feeling much better. Discussed results and discharge instructions: He verbalized understanding and agreement. The patient is ready for discharge. Medical Decision Nursing notes reviewed. Ancillary studies and prior records reviewed. The patient is a 87 year old white male with a past medical history of a CVA, GI bleed, and pacemaker placement who presents to the ED with a cc of diarrhea beginning this afternoon. Differential diagnosis: Etiologies such as appendicitis, diverticulitis, PUD, biliary pathology, UTI, pancreatitis, obstruction, mesenteric ischemia, aortic pathology, infections, inflammatory bowel disease, renal colic, as well as others were entertained. Patient was seen and evaluated the bedside. The patient did present with concern for diarrhea. On exam the patient only has some mild lower abdominal discomfort. The patient is very well-appearing though otherwise. The patient did have a bout of diarrhea prior to arrival. No recent antibiotic use no recent sick contacts per the patient. Patient did blood work completed along with a CT of the abdomen pelvis. The patient was also given IV fluids. The patient was hungry and was able tolerate p.o. Patient's blood work did show some CKD. This appears fairly chronic from prior. Patient does have mildly elevated BUN/creatinine ratio. This likely is related to some mild dehydration. The patient did receive IV fluids. The patient does have some chronic but stable anemia. White blood cell count is within normal limits. The patient denies any upper abdominal or chest pain or shortness of breath. Do not believe this is referred chest pain. The patient CT the abdomen pelvis did not show any acute surgical abnormality. The patient did likely have an enteritis. There was a possibility of a cystitis however the patient's urinalysis appears to be contaminated. Will not treat at this time but culture was ordered and if positive antibiotics will be called in for the patient. Upon reassessment of the patient I did explain all the findings. The patient was feeling improved and again was able tolerate by mouth liquids and solids. Patient was ready for home. I believe this is suitable as [facility] at a [facility]. Patient was given strict follow-up, discharge, and return precautions. All questions were answered. Patient was deemed suitable for outpatient follow- up at this time. Patient agreed with the plan of care and was safely discharged home. Medication Reconcilliation Current Medication List: was personally reviewed by me Blood Pressure Screening Patient's blood pressure: Normal blood pressure Impression Primary Impression: Enteritis Additional Impressions: Diarrhea CKD (chronic kidney disease) Scribe Attestation The scribe's documentation has been prepared under my direction and personally reviewed by me in its entirety. I confirm that the note above accurately reflects all work, treatment, procedures, and medical decision making performed by me. Departure Information Dispostion Home / Self-Care Referrals [facility] (PCP) Forms HOME CARE DOCUMENTATION FORM, IMPORTANT VISIT INFORMATION, WORK / SCHOOL INSTRUCTIONS Patient Instructions Dehydration, Diarrhea, [facility] Additional Instructions Please return to the emergency department if you have worsening or recurrent symptoms not amenable to at-home treatment. Please call for a follow-up appointment with her primary care physician. Please take your medications as prescribed. If you have other concerns and/or complaints please feel free to also call your primary care physician's office or return the ED for further evaluation, management, and treatment. Take your medications as prescribed You have been examined and treated today on an emergency basis only. This is not a substitute for, or an effort to provide, complete comprehensive medical care. It is impossible to recognize and treat all injuries or illnesses in a single emergency department visit. It is therefore important that you follow up closely with [facility], your PCP, and/or your specialist(s). Call as soon as possible for an appointment. Thank you for your time and consideration. I look forward to speaking with you again soon. Please don't hesitate to call us if you have any questions. Problem Qualifiers Additional Impressions: Diarrhea Diarrhea type: unspecified type Qualified Codes: R19.7 - Diarrhea, unspecified CKD (chronic kidney disease) Chronic kidney disease stage: stage 3 (moderate) Qualified Codes: N18.3 - Chronic kidney disease, stage 3 (moderate)
--- NOTE | 2017-12-21 15:15 | DIAGNOSTIC IMAGING REPORT ---
CHEST ONE VIEW PORTABLE CLINICAL HISTORY: Cough. COMPARISON STUDY: Chest radiograph May 05, 2017. FINDINGS: Severe degenerative changes of the right glenohumeral joint are noted. A left subclavian biventricular pacer/AICD, median sternotomy wires and prosthetic aortic valve are noted. There is moderate cardiomegaly without evidence for pulmonary edema. Mild elevation of the right hemidiaphragm is noted. There is no consolidation. Appearance of the chest is similar to previous exam. IMPRESSION: No acute cardiopulmonary findings. Electronically signed by: Anshul Redding M.D. 12/21/2017 3:14 PM Dictated Date/Time: 12/21/2017 3:13 PM
[2017-12-21 15:21] LABS: BASO % 0.1 %; BASO ABS # 0.01 K/uL (0-0.2); EOS % 2.1 %; EOS ABS # 0.18 K/uL (0-0.5); HEMATOCRIT 35.7 % (42-52); HEMOGLOBIN 12.2 g/dL (14.0-18.0); IG# 0.02 K/uL (0.00-0.02); LYMPH % 5.4 %; LYMPH ABS # 0.47 K/uL (1.2-3.4); MEAN CELL VOLUME 90.6 fL (80-100); MEAN CORPUSCULAR HGB CONC 34.2 g/dl (32-36); MEAN PLATELET VOLUME 10.2 fL (7.4-10.4); MONO % 5.9 %; MONO ABS # 0.51 K/uL (0.11-0.59); NEUT % 86.3 %; PLATELET COUNT 124 K/uL (130-400); RED CELL DISTRIBUTION WIDTH CV 14.2 % (11.5-14.5); RED CELL DISTRIBUTION WIDTH SD 47.6 fL (36.4-46.3); WHITE BLOOD COUNT 8.69 K/uL (4.8-10.8)
[2017-12-21 15:34] LABS: ISTAT CREATININE 1.7 mg/dl (0.6-1.3); ISTAT IONIZED CALCIUM 1.08 mmol/l (1.12-1.32); ISTAT POTASSIUM 5.3 mEq/L (3.3-5.0)
[2017-12-21 15:53] LABS: ALBUMIN 3.8 gm/dl (3.4-5.0); CREATININE 1.91 mg/dl (0.60-1.40); POTASSIUM 4.8 mmol/L (3.5-5.1)
[2017-12-21] MEDS ORDERED: POTA10CA28 PO (16:52)
[2017-12-21] MEDS ORDERED: DOCU-94 PO (16:52)
[2017-12-21] MEDS ORDERED: BUME2TAB3 PO ×2 (16:52)
--- NOTE | 2017-12-21 16:55 | DIAGNOSTIC IMAGING REPORT ---
CT OF THE ABDOMEN AND PELVIS WITHOUT CONTRAST CLINICAL HISTORY: Acute abdominal pain and nausea. COMPARISON STUDY: KUB February 04, 2017. TECHNIQUE: Axial images of the abdomen and pelvis were obtained without IV contrast. Images were reviewed in the axial, sagittal, and coronal planes. A dose lowering technique was utilized adhering to the principles of ALARA. FINDINGS: Visualized portions of the lower chest partially visualize pacer leads and a prosthetic aortic valve. There is moderate cardiomegaly. No pneumatosis, free air or portal venous gas is present. There is a small calcified gallstone within the gallbladder without evidence for acute cholecystitis. Evaluation of the abdomen and pelvis is suboptimal on this unenhanced exam. There is nodularity of the liver surface. Sensitivity for detection of hepatic lesions is diminished on this unenhanced exam but none are identified. The spleen, adrenal glands, kidneys and pancreas are unremarkable. There is slight dilatation of both ureters which may be related to moderate bladder dilatation. Bladder wall is irregular and thickened. There is mild adjacent infiltration. There is no evidence for a bowel obstruction. There is colonic diverticulosis without evidence for acute diverticulitis. There is no evidence for acute appendicitis. Small and large bowel is mildly fluid-filled. Prominent bilateral inguinal lymph nodes are likely benign. There are no suspicious osseous lesions. There is mild dilatation of both common iliac arteries. IMPRESSION: 1. No bowel obstruction. Mildly fluid-filled small and large bowel may reflect an enterocolitis. 2. Colonic diverticulosis without evidence for acute diverticulitis. 3. Irregular bladder wall with mild adjacent infiltration. This suggests chronic bladder outlet obstruction however could be correlated with urinalysis to exclude cystitis. 4. Suspected cirrhosis. 5. Cholelithiasis. No evidence for acute cholecystitis. Electronically signed by: Anshul Redding M.D. 12/21/2017 4:54 PM Dictated Date/Time: 12/21/2017 4:46 PM
[2017-12-21 18:47] VITALS: BP 121/77; PULSE 104; O2SAT 100
== END 2017-12-21 18:48 | disposition home or self-care (01) ==
LOC: EDBD 14:12 → C.EDA 14:14
DX: K52.9 Noninfective gastroenteritis and colitis, unspecified (principal); R19.7 Diarrhea, unspecified; N18.3 Chronic kidney disease, stage 3 (moderate); Z86.73 Personal history of transient ischemic attack (TIA), and cerebral infarction without residual deficits; Z95.0 Presence of cardiac pacemaker; E11.9 Type 2 diabetes mellitus without complications; E78.5 Hyperlipidemia, unspecified; I25.5 Ischemic cardiomyopathy; Z87.891 Personal history of nicotine dependence; Z79.4 Long term (current) use of insulin; Z79.899 Other long term (current) drug therapy; Z88.2 Allergy status to sulfonamides

== ENCOUNTER → 2018-02-13 | Outpatient (CLI) | payer BC ==
[~2018-02-13] MED LIST changes: -BUME1TAB PO; +BUME2TAB3 PO; -CLCUDL PO; +DOCU-94 PO; -LORA-741 PO; +POTA10CA28 PO
[2018-02-13 13:49] LABS: BLOOD UREA NITROGEN 34 mg/dl (7-18); CALCIUM 8.4 mg/dl (8.5-10.1); CARBON DIOXIDE 29 mmol/L (21-32); GLUCOSE 76 mg/dl (70-99); POTASSIUM 3.7 mmol/L (3.5-5.1); SODIUM 140 mmol/L (136-145)
== END | disposition home or self-care (01) ==
LOC: C.LABWYN 11:31
PROVIDERS: ATTEND Physician Assistant
DX: I50.9 Heart failure, unspecified (principal); N18.9 Chronic kidney disease, unspecified

== ENCOUNTER → 2018-03-04 | Outpatient (CLI) | payer BC ==
[2018-03-04 13:35] LABS: BLOOD UREA NITROGEN 41 mg/dl (7-18); CALCIUM 8.4 mg/dl (8.5-10.1); CARBON DIOXIDE 28 mmol/L (21-32); GLUCOSE 64 mg/dl (70-99); POTASSIUM 3.8 mmol/L (3.5-5.1); SODIUM 139 mmol/L (136-145)
== END | disposition home or self-care (01) ==
LOC: C.LABWYN 16:24
PROVIDERS: ATTEND Physician Assistant
DX: N18.9 Chronic kidney disease, unspecified (principal); E87.70 Fluid overload, unspecified